=== PATIENT | male | born 1980 | race Caucasian/White ===

== ENCOUNTER 2020-05-15 11:39 | Emergency (ER) | payer OTHER, SELFPAY ==
[2020-05-15] VITALS (13 sets, daily range): BP systolic 154–205; BP diastolic 93–128; PULSE 70–86; RESP 12–22; TEMP 36; O2SAT 94–100
--- NOTE | ~2020-05-15 | XR_ITS ---
XR chest 1V portable 05/15/2020 12:22 Indication: Chest pain. Chills. Fever. Procedure: AP portable chest Comparison: No prior studies for comparison. Findings: Heart size is normal. No focal air space disease, pulmonary edema, pleural effusion or susp ected pneumothorax. No acute osseous abnormality. Impression: 1: No acute cardiopulmonary disease. Reviewed, dictated and finalized at location A. OPEDIC NURSE PRACTITIONER Impression: 1: No acute cardiopulmonary disease.
--- NOTE | 2020-05-15 11:49 | ECG_ITS ---
Measurements Intervals [place] Rate: 74 P: 9 ID: [id number] QRS: -33 QRSD: 131 T: -9 QT: 395 QTc: 439 Interpretive Statements SINUS RHYTHM LEFT AXIS DEVIATION RIGHT BUNDLE BRANCH BLOCK ABNORMAL ECG Electronically Signed On 05-15-2020 12:05:28 DOUBLE NEEDLE STITCHER by Danish Joy D.O.
[2020-05-15 12:02] LABS: Basophils Percent Auto 0.6 % (0.2-1.2); Eosinophils Absolute Auto 0.1 K/mm3 (0-0.3); Eosinophils Percent Auto 0.9 % (0-4.4); Hematocrit 49.3 % (42.0-52.0); Hemoglobin 16.9 g/dL (14.0-18.0); Immature Granulocyte Absolute 0.02 K/mm3 (0.00-0.031); Immature Granulocyte Percent A 0.3 % (0-0.5); Lymphocytes Absolute Auto 1.25 K/mm3 (0.9-3.2); Lymphocytes Percent Auto 18.2 % (18.3-44.2); Mean Corpuscular HGB Conc 34.3 g/dl (32-36); Mean Corpuscular Hemoglobin 31.2 pg (26-34); Mean Platelet Volume 9.4 fl (7.4-10.4); Monocytes Absolute Auto 0.7 K/mm3 (0.1-0.6); Monocytes Percent Auto 10.7 % (2.6-8.5); Neutrophils Absolute Auto 4.8 K/mm3 (1.3-6.7); Neutrophils Percent Auto 69.3 % (45.5-73.1); Platelet Count Result 248 k/mm3 (150-375); Red Blood Count 5.42 M/mm3 (4.6-6.20); Red Cell Distribution Width 11.5 % (11.5-14.5); White Blood Count 6.9 K/mm3 (4.5-10.0)
[2020-05-15] MEDS: ASPIRIN 81 MG CHEWABLE TABLET 324 MG PO (12:06)
[2020-05-15 12:18] LABS: Alanine Aminotransferase 59 U/L (4-50); Alkaline Phosphatase 71 U/L (38-126); Anion Gap 11 mmol/L (8-16); Aspartate Amino Transferase 49 U/L (17-59); Bilirubin,Total 0.9 mg/dL (0.2-1.3); Blood Urea Nitrogen 16 mg/dL (9-20); Calcium 10.5 mg/dL (8.4-10.2); Carbon Dioxide 28 mmol/L (22-30); Chloride 98 mmol/L (98-107); Estimated CRCL calculation 108 ml/min; Estimated Glomerular Filt Rate > 60; Glucose 109 mg/dL (75-110); Potassium 4.1 mmol/L (3.4-5.0); Sodium 137 mmol/L (137-145)
[2020-05-15 12:30] LABS: Troponin I < 0.012 ng/mL (0.000-0.034)
[2020-05-15 12:31] LABS: Troponin I < 0.012 ng/mL (0.000-0.034)
[2020-05-15 13:37] LABS: Add Urine Microscopic? NO; Appearance Urine Clear (Clear); Bilirubin Urine Negative (Negative); Blood Urine Negative (Negative); Color Urine Straw (Yellow); Glucose Urine UA Negative (Negative); Ketones Urine Negative (Negative); Leukocyte Esterase Ur Negative LEU/UL (Negative); Nitrate Urine Negative (Negative); Protein Urine Negative (Negative); Specific Grav Ur 1.011 (1.001-1.035); Urobilinogen Urine Negative mg/dL (<2.0)
--- NOTE | 2020-05-15 13:46 | PC.NURSE ---
Pt has requested covid swab. Pt reports has been afebrile, but has had chills, I'm fatigued, slight runny nose and cough . Explained to patient that his chest xray looked clear and that his pulse oximetry has been 99-100% on room air; pt states he still thinks he has covid. JACK Jones, made aware.
--- NOTE | 2020-05-15 13:51 | ED.GENADULT ---
HPI - General Adult General Chief complaint: Chest Pain Stated complaint: covid vaccine reaction Time Seen by Provider: 05/15/20 11:49 Source: patient Mode of arrival: ambulatory Limitations: no limitations History of Present Illness HPI narrative: Patient presents with chief complaint of occasional pain to the center of his sternum that resolves quickly without intervention that began 4 days ago. Patient states that he received his first Covid vaccination on 05-09-20. He states 2 days after he began having some fatigue, a little body aches, mild headache, then he noticed the intermittent transient sternum discomfort. He states it feels like a tightness that then resolves itself within a few seconds without intervention. He denies feeling palpitations, left sided chest pain, jaw pain, radiation of pain down left arm, vomiting, or epigastric pain at the times it occurs. He has been afebrile. He states he does not take any medications. Drinks coffee occasionally. Denies any new medications or supplements or recreational drugs. He states he reported his symptoms to his job which directed him to the ER for evaluation The last time the patient felt the pain was a few seconds at 8 am today. He does not have it upon presentation to the ER. Related Data Allergies Allergy/AdvReac Type Severity Reaction Status Date / Time No Known Allergies Allergy Verified 05/15/20 11:50 Review of Systems Review of Systems: Narrative: CONSTITUTIONAL:Reports fatigue Denies fever, chills, or sweats. EYES: Denies visual changes, redness, or discharge. ENT: Denies rhinorrhea, congestion, sore throat, or otalgia. CARDIOVASCULAR: Report transient sternum pain Denies chest pain, palpitations, or edema. RESPIRATORY: Denies cough or dyspnea. GASTROINTESTINAL: Denies abdominal pain, nausea, vomiting, or diarrhea. GENITOURINARY: Denies dysuria or hematuria. SKIN: Denies rash or itching. MUSCULOSKELETAL: Denies back pain, myalgia, or joint pain NEUROLOGIC: Denies headache, numbness, dizziness, or weakness. PSYCHIATRIC: Denies anxiety or depression. Exam Narrative: Exam Narrative: GENERAL: Well-appearing, well-nourished. Does not appear to be in any discomfort or distress. Smiling and talking normally. HEAD: Normocephalic, atraumatic. EYES: PERRLA and EOMI. NECK: Supple. No adenopathy or masses. No vertebral tenderness or loss of ROM. CHEST: No tenderness to palaption. Clear to auscultation. No respiratory distress. No wheezes rales or rhonchi HEART: Regular rate and rhythm. Normal peripheral pulses. EXTREMITIES: No acute changes in ROM. No edema. SKIN: Warm, dry, no rash. NEURO: No focal deficits. Alert and oriented x3. PSYCH: Normal mood and affect. Course Vital Signs Vital signs: Vital Signs Temperature 96.8 F L 05/15/20 11:47 Pulse Rate 74 05/15/20 11:47 Respiratory Rate 14 05/15/20 11:47 Blood Pressure 205/128 H 05/15/20 11:47 Pulse Oximetry 99 05/15/20 11:47 Temperature 96.8 F L 05/15/20 11:47 Pulse Rate 81 05/15/20 14:50 Respiratory Rate 20 05/15/20 14:50 Blood Pressure 157/104 H 05/15/20 14:32 Pulse Oximetry 98 05/15/20 14:17 Medical Decision Making MDM Narrative Medical decision making narrative: Patient has not had any active chest pain throughout his ER visit. Patient feels the pain is transiently and has over the past 4 days. Patient's troponin was negative. His EKG was insignificant. Patient does not have a close family history or personal history of prior NC or stroke. Patient has been instructed to follow-up with his primary care for reevaluation of blood pressure, and further investigation into his symptoms. I have discussed with the patient that he may need a Holter monitor, stress test or echo. Patient states that he has had these symptoms many years ago and they were due to stress and anxiety but I have stressed to the patient that it is important that he follow-up with his primary care to have the
== END 2020-05-15 14:54 | disposition home or self-care (01) ==
PROVIDERS: Physician Assistant; Emergency Provider Emergency Medicine; PCP Internal Medicine
DX: R07.9 Chest pain, unspecified (principal); T50.Z95A Adverse effect of other vaccines and biological substances, initial encounter
CPT/HCPCS: 36415; 71045; 80053; 81003; 84484; 85025; 93005; 99284; A9270

== ENCOUNTER 2021-03-15 17:02 | Inpatient (IN) | payer BC, SELFPAY ==
--- NOTE | ~2021-03-15 | US_ITS ---
EXAMINATION: US abdomen limited DATE: 03/16/2021 10:14 INDICATION: Pancreatitis. TECHNIQUE: Multiple grayscale and Doppler ultrasound images of the abdomen were obtained. COMPARISON: CT dated 03/15/2021 FINDINGS: There is heterogeneous echogenicity of the visualized body of the pancreas consistent with acute inte rstitial pancreatitis which is better appreciated on prior CT. No acute peripancreatic fluid collecti ons. Visualized proximal inferior vena cava is normal. Liver has normal echogenicity and contour, wit h a smooth surface. No liver lesion identified. No intrahepatic biliary duct dilation suspected. Port al venous flow was seen in the hepatopetal, normal direction and has normal Doppler waveform. The gal lbladder is normal in appearance. There is no cholelithiasis. The common bile duct measures 3 mm, wh ich is normal. Sonographic Moody sign was reported as negative by the station master. IMPRESSION: 1. Subtle heterogeneous echogenicity of the body of the pancreas consistent with previous noted acute interstitial pancreatitis without evident acute peripancreatic fluid collections. 2. Otherwise normal right upper quadrant ultrasound with no evident cholelithiasis. Reviewed, dictated and finalized at location A. IMPRESSION: 1. Subtle heterogeneous echogenicity of the body of the pancreas consistent wit h previous noted acute interstitial pancreatitis without evident acute peripanc reatic fluid collections. 2. Otherwise normal right upper quadrant ultrasound with no evident cholelithia sis.
--- NOTE | ~2021-03-15 | CT_ITS ---
EXAMINATION: CT abdomen pelvis w con DATE: 03/15/2021 19:33 INDICATION: Epigastric abdominal pain, lower abdominal pain. Elevated serum lipase. TECHNIQUE: Computed tomography (CT) of the abdomen and pelvis was performed with 100 cc Omnipaque 350 intravenous contrast. Automated exposure control and iterative reconstruction technique were employe d. Exam dose: 1181.97 mGy-cm total exam DLP. COMPARISON: None. FINDINGS: Minimal dependent atelectasis at the lower lobes. The lung bases are otherwise clear. Normal heart size. No pericardial or pleural effusion. Small sliding hiatal hernia. The liver, gallbladder and bile ducts are unremarkable. Normal splenic size. There is prominent peripancreatic fluid as well as some fluid along the left and right anterior parar enal fascia and surrounding the duodenum, compatible with acute pancreatitis. No pancreatic necrosis or calcification, pseudocyst or abscess is evident. Normal morphology of the adrenal glands. Horseshoe kidney. No renal mass lesion or urinary tract calculus or hydroureteronephrosis. The urinar y bladder and prostate gland are unremarkable. No bowel obstruction, bowel wall thickening, pneumatosis or intraperitoneal free air. Normal appendix . Normal caliber of the abdominal aorta. No intraperitoneal or retroperitoneal or pelvic mass lesion or adenopathy or ascites. Degenerative disc disease particularly at L2-3 and L3-4. IMPRESSION: Acute pancreatitis Horseshoe kidney Small sliding hiatal hernia Reviewed, dictated and finalized at Location A. Reviewed, dictated and finalized at location A.
--- NOTE | ~2021-03-15 | XR_ITS ---
XR chest 2V DATE: 03/15/2021 17:33 INDICATION: Midsternal chest pain, nausea and vomiting, weakness for 3 days TECHNIQUE: PA and lateral views COMPARISON: 05/15/2020 portable AP chest FINDINGS: Normal heart size. No hilar or mediastinal enlargement. No pulmonary infiltrate or consolid ation, pleural effusion or pulmonary vascular congestion or pneumothorax. Included skeletal structure s appear normal. IMPRESSION: Negative Reviewed, dictated and finalized at location A. IMPRESSION: Negative
--- NOTE | 2021-03-15 17:03 | ECG_ITS ---
Measurements Intervals [place] Rate: 102 P: 31 NC: 152 QRS: -47 QRSD: 129 T: 21 QT: 362 QTc: 474 Interpretive Statements SINUS TACHYCARDIA RIGHT BUNDLE BRANCH BLOCK LEFT ANTERIOR FASCICULAR BLOCK ABNORMAL ECG Electronically Signed On 03-16-2021 16:21:39 CDT by Danish Joy D.O.
[2021-03-15 17:05] VITALS: BP 152/94; PULSE 96; RESP 16; TEMP 36.6; O2SAT 99
[2021-03-15 17:28] LABS: Basophils Percent Auto 0.3 % (0.2-1.2); Eosinophils Absolute Auto 0.2 K/mm3 (0-0.3); Eosinophils Percent Auto 1.1 % (0-4.4); Hematocrit 49.1 % (42.0-52.0); Hemoglobin 16.7 g/dL (14.0-18.0); Immature Granulocyte Absolute 0.04 K/mm3 (0.00-0.031); Immature Granulocyte Percent A 0.3 % (0-0.5); Lymphocytes Absolute Auto 2.27 K/mm3 (0.9-3.2); Lymphocytes Percent Auto 15.9 % (18.3-44.2); Mean Corpuscular Hemoglobin 31.7 pg (26-34); Mean Corpuscular Volume 93.2 fl (80-100); Mean Platelet Volume 9.3 fl (7.4-10.4); Monocytes Absolute Auto 1.6 K/mm3 (0.1-0.6); Monocytes Percent Auto 11.2 % (2.6-8.5); Neutrophils Absolute Auto 10.1 K/mm3 (1.3-6.7); Neutrophils Percent Auto 71.2 % (45.5-73.1); Platelet Count Result 247 k/mm3 (150-375); Red Blood Count 5.27 M/mm3 (4.6-6.20); Red Cell Distribution Width 12.2 % (11.5-14.5); White Blood Count 14.2 K/mm3 (4.5-10.0)
[2021-03-15 17:38] LABS: INR 0.9; Prothrombin Time 12.3 Seconds (11.1-14.7)
[2021-03-15 17:39] LABS: Partial Thromboplastin Time 22.6 SECONDS (22.3-36.8)
[2021-03-15 17:42] LABS: Anion Gap 12 mmol/L (8-16); Blood Urea Nitrogen 13 mg/dL (9-20); Calcium 10.7 mg/dL (8.4-10.2); Carbon Dioxide 26 mmol/L (22-30); Chloride 100 mmol/L (98-107); Estimated Glomerular Filt Rate > 60; Glucose 136 mg/dL (65-110); Potassium 4.1 mmol/L (3.4-5.0); Sodium 138 mmol/L (137-145)
--- NOTE | 2021-03-15 17:47 | ED.GENADULT ---
HPI - General Adult General Chief complaint: Chest Pain Stated complaint: Chest pain Time Seen by Provider: 03/15/21 17:20 Source: patient and RN notes reviewed Mode of arrival: ambulatory Limitations: no limitations History of Present Illness HPI narrative: This is a 40 year old male with history of hypertension, hyperlipidemia who presents for evaluation of abdominal pain. He has been dealing with diffuse abdominal discomfort for 3 days. He has constant discomfort and it intermittently worsens. Today he developed sudden onset epigastric pain. He became flushed, diaphoretic with associated nausea with nonbilious emesis x 1 . He continues to have epigastric pain and nausea. He denies shortness of breath, fever, chills or urinary complaints. He denies radiation of his pain to his back. He was able to eat breakfast this morning and he states eating did not worsen his pain. He also denies having similar pain in the past. Related Data Home Medications Medication Instructions Recorded Confirmed atorvastatin 20 mg PO DAILY 03/15/21 03/15/21 fluoxetine 20 mg PO DAILY 03/15/21 03/15/21 lisinopril 10 mg PO DAILY 03/15/21 03/15/21 Allergies Allergy/AdvReac Type Severity Reaction Status Date / Time No Known Allergies Allergy Verified 03/15/21 17:08 Review of Systems Review of Systems: All systems reviewed & are unremarkable except as noted in HPI and below PMFSH Past Medical History Medical History (Updated 03/15/21 @ 23:43 by Luann East MD) Anxiety Hyperlipidemia Hypertension Surgical History Surgical History (Updated 03/15/21 @ 23:35 by Mari Harrell DO) History of bilateral inguinal hernia repair (~2010) S/P left rotator cuff repair S/P right rotator cuff repair Family History Family History Mother Hypertension Diabetes mellitus Father Hypertension Social History Social History Smoking status: Never smoker Alcohol intake: current Drinks per week: 35 Alcohol use details: drinks daily Spiritual care concerns: No Exam Const: General: alert Orientation/consciousness: patient oriented x3 HENMT: Head: normocephalic and atraumatic General nose exam: Normal external nose present Face and sinus: face symmetric Mouth: Yes Normal oral and palatal mucosa present, Yes oropharynx normal, Yes moist mucous membranes and Yes other (pale lips) Eyes: Pupils: Equal, round and reactive pupils present EOM: EOMs intact bilaterally Chest: Chest palpation & inspection: normal inspection of the chest Resp: Effort & Inspection: normal respiratory effort and no retractions Auscultation: clear to auscultation bilaterally Cardio: Rate: regular rate Rhythm: regular rhythm Heart sounds: no murmurs GI: GI Palp: Yes Soft to palpation, No Tenderness to palpation present (GI) and No Guarding due to palpation present (GI) Auscultation: normal bowel sounds Back/Spine/Pelvis: Back: no CVA tenderness Skin: General skin exam: normal color Rashes: no rashes Neuro: General: patient oriented x3, moves all extremities and CN's II-XI intact bilaterally Extrem: General: normal to inspection and no pedal edema Psych: Mental Status: mental status grossly normal Affect: normal affect Course Reevaluation(s) Reevaluation #1: Patient understands he will be admitted for acute pancreatitis. This is likely due to alcohol use. Patient understands . Date: 03/15/21 Time: 21:00 Consultations Consultation #1: I discussed with Dr. harrell patient case. She accepts patient to service for acute pancreatitis. Will order 2 IV fluid Date: 03/15/21 Time: 19:50 Vital Signs Vital signs: Vital Signs Temperature 97.8 F 03/15/21 17:05 Pulse Rate 96 03/15/21 17:05 Respiratory Rate 16 03/15/21 17:05 Blood Pressure 152/94 H 03/15/21 17:05 Pulse Oximetry 99 03/15/21 17:05 Temperatu
[2021-03-15 17:53] LABS: Troponin I < 0.012 ng/mL (0.000-0.034)
[2021-03-15] MEDS: PANTOPRAZOLE SODIUM IV 40 MG VIAL IV PUSH (17:54)
[2021-03-15] MEDS: ONDANSETRON INJ 4 MG/2 ML VIAL IV PUSH (17:54)
[2021-03-15 18:01] LABS: Alanine Aminotransferase 39 U/L (4-50); Albumin Level 5.1 g/dL (3.5-5.1); Alkaline Phosphatase 77 U/L (38-126); Aspartate Amino Transferase 39 U/L (17-59); Bilirubin,Total 0.7 mg/dL (0.2-1.3)
[2021-03-15 18:36] LABS: Lipase 14690 U/L (23-300)
[2021-03-15 18:48] VITALS: BP 156/93; PULSE 79; RESP 12; O2SAT 99
[2021-03-15] MEDS: HYDROmorphone HCL INJ (*CRX) 1 MG/ML SYR IV PUSH (18:54)
[2021-03-15] MEDS: ONDANSETRON INJ 4 MG/2 ML VIAL (19:03)
--- NOTE | 2021-03-15 19:09 | PC.NURSE ---
Pt. vomiting after dilaudid administration. ERP notified. ERP ordered 4mg of zofran IVP via verbal order readback.
[2021-03-15] MEDS: SODIUM CHLORIDE 0.9% IV 1,000 ML 999 ML IV CONT ×2 (20:09)
--- NOTE | 2021-03-15 20:23 | PM.IMHP ---
H&P: HPI History of Present Illness Date/Time: 03/15/21 20:23 Chief Complaint: Upper abdominal pain Narrative: 40-year-old male with past medical history of hypertension, hyperlipidemia, anxiety and chronic alcohol abuse who presented to the ER with epigastric abdominal pain. The patient reported pain started about 3 days ago and was pressure-like in nature. The pain started about an hour after eating a breakfast of an exam which. He has not noticed any worsening of pain with eating or drinking. The pain is been intermittent in nature but has been more persistent over the last 24 hours. The pain is a 7/10 in intensity at its worst in 5/10 in intensity currently. He has not taken any medications at home to help with this pain. Is been accompanied by intermittent nausea and 2 episodes of vomiting 1 time each day for the last 2 days. His emesis consisted of food and yellow material. He denies any coffee-ground emesis or mad emesis. He has been having normally formed bowel movements with last bowel movement this afternoon. He denies any hematochezia or melena. He has never had abdominal pain like this before. His pain does not radiate. He does drink quite heavily and drinks 5-6 alcoholic beverages a day with 1.5 shots of vodka in each drink. He does get shaky at times if he does not drink alcohol. His last drink was around 10:00 p.m. on the . He denies any fevers, chills, cough, congestion, shortness of breath or recent ill contacts. He is vaccinated against COVID-19 with Moderna vaccine back in June 2020. His labs and CT scan are consistent with acute pancreatitis. He denies any prior history of pancreatitis and denies familial pancreatitis. He does snore. He denies any episodes of apnea. He denies excessive daytime sleepiness. Review of Systems Review of Systems: 12 systems were reviewed with pertinent positives and negatives per HPI. Except as documented in the HPI, all other systems were reviewed and are negative. [facility] Past Medical History Medical History (Updated 03/15/21 @ 23:50 by Mari Yoder DO) Anxiety Hyperlipidemia Hypertension Surgical History Surgical History (Updated 03/15/21 @ 23:35 by Mari Yoder DO) History of bilateral inguinal hernia repair (~2010) S/P left rotator cuff repair S/P right rotator cuff repair Family History Family History Mother Hypertension Diabetes mellitus Father Hypertension Social History Social History (Updated 03/15/21 @ 23:45 by Mari Yoder DO) Social History: He is for 11 years. They have 5 children. 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 He drinks 5-6 vodka containing beverages a night containing about 9 shot of alcohol total. He is a lifelong nonsmoker and denies illicit substance use. Code status: Full code Surrogate decision maker: Smoking status: Never smoker Alcohol intake: current Drinks per week: 35 Alcohol use details: drinks daily Substance use: never Spiritual care concerns: No Comments He has 1 sister who is healthy. Meds Home Medications and Allergies Home Medications Medication Instructions Recorded Confirmed Type atorvastatin 20 mg PO DAILY 03/15/21 03/15/21 History fluoxetine 20 mg PO DAILY 03/15/21 03/15/21 History lisinopril 10 mg PO DAILY 03/15/21 03/15/21 History Allergies Allergy/AdvReac Type Severity Reaction Status Date / Time No Known Allergies Allergy Verified 03/15/21 17:08 Vital Signs Vital Signs - 24 hr 03/15/21 17:05 03/15/21 18:48 Temperature 97.8 F Pulse Rate 96 79 Respiratory Rate 16 12 Blood Pressure 152/94 H 156/93 H Pulse Oximetry 99 99 Exam Narrative: PHYSICAL EXAM: WEIGHT 116.1 kg BMI 32.9 General: Obese, mildly ill-appearing HEENT: Mucous membranes are tacky, no oral pharyngeal erythema, crowded posterior oropharynx, large neck circumference, no scleral icterus,
[2021-03-15] MEDS: PROMETHAZINE HCL 25 MG/ML AMPUL 12.5 MG IV PUSH (20:31)
[2021-03-15 21:56] VITALS: BP 152/89; PULSE 91; RESP 18; O2SAT 100
[2021-03-15 22:00] VITALS: BP 153/85; PULSE 75; RESP 18; TEMP 35.8; O2SAT 100
[2021-03-15 22:17] VITALS: BMI 32.8
--- NOTE | 2021-03-15 22:17 | ADMGEN ---
This patient, Santosh Alston, was admitted to [facility] S[facility] Room 310-01. Patient/family oriented to hospital policies and general routines including ID bracelet, bed and alarms, visiting hours, pain management, procedures, bathroom and other care routines, personal items, smoking policy, room service/diet, and visiting hours. Information on how to activate the Rapid Response Team has been discussed. Patient/Family are encouraged to report perceived risks to care and to ask questions if they do not understand what they are told or what they should do.
[2021-03-15 22:19] VITALS: BMI 32.8
[2021-03-15] MEDS: HYDROmorphone HCL INJ (*CRX) 1 MG/ML SYR 0.5 MG IV PUSH (23:05)
[2021-03-15] MEDS: SODIUM CHLORIDE 0.9% IV 1,000 ML 200 ML IV CONT (23:15)
[2021-03-16] VITALS (10 sets, daily range): BP systolic 150–182; BP diastolic 91–108; PULSE 78–92; RESP 12–18; TEMP 35.8–36.4; O2SAT 94–97
[2021-03-16] MEDS: ONDANSETRON INJ 4 MG/2 ML VIAL IV PUSH ×5 (01:12→21:50)
[2021-03-16] MEDS: SODIUM CHLORIDE 0.9% IV 1,000 ML 200 ML IV CONT ×2 (05:01→10:13)
[2021-03-16] MEDS: HYDROmorphone HCL INJ (*CRX) 1 MG/ML SYR 0.5 MG IV PUSH ×4 (05:04→21:50)
[2021-03-16 06:56] LABS: Basophils Percent Auto 0.1 % (0.2-1.2); Hematocrit 48.3 % (42.0-52.0); Hemoglobin 16.2 g/dL (14.0-18.0); Immature Granulocyte Absolute 0.06 K/mm3 (0.00-0.031); Immature Granulocyte Percent A 0.4 % (0-0.5); Lymphocytes Absolute Auto 0.39 K/mm3 (0.9-3.2); Lymphocytes Percent Auto 2.5 % (18.3-44.2); Mean Corpuscular HGB Conc 33.5 g/dl (32-36); Mean Corpuscular Hemoglobin 31.5 pg (26-34); Mean Platelet Volume 9.7 fl (7.4-10.4); Monocytes Absolute Auto 1.3 K/mm3 (0.1-0.6); Monocytes Percent Auto 8.6 % (2.6-8.5); Neutrophils Absolute Auto 13.8 K/mm3 (1.3-6.7); Neutrophils Percent Auto 88.4 % (45.5-73.1); Platelet Count Result 211 k/mm3 (150-375); Red Blood Count 5.14 M/mm3 (4.6-6.20); Red Cell Distribution Width 12.2 % (11.5-14.5); White Blood Count 15.6 K/mm3 (4.5-10.0)
[2021-03-16 07:12] LABS: Alanine Aminotransferase 31 U/L (4-50); Albumin Level 4.7 g/dL (3.5-5.1); Alkaline Phosphatase 69 U/L (38-126); Anion Gap 8 mmol/L (8-16); Aspartate Amino Transferase 31 U/L (17-59); Bilirubin,Total 0.8 mg/dL (0.2-1.3); Blood Urea Nitrogen 13 mg/dL (9-20); Calcium 9.5 mg/dL (8.4-10.2); Carbon Dioxide 27 mmol/L (22-30); Chloride 102 mmol/L (98-107); Estimated CRCL calculation 162 ml/min; Estimated Glomerular Filt Rate > 60; Glucose 156 mg/dL (65-110); Magnesium 1.8 mg/dL (1.6-2.3); Phosphorus 3.8 mg/dL (2.5-4.5); Potassium 4.2 mmol/L (3.4-5.0); Sodium 137 mmol/L (137-145); Triglycerides 64 mg/dL (<150)
[2021-03-16 08:49] LABS: Hemoglobin A1C 5.5 % (<5.7)
[2021-03-16 08:55] LABS: Lipase 5209 U/L (23-300)
[2021-03-16] MEDS: PANTOPRAZOLE SODIUM IV 40 MG VIAL IV PUSH (09:31)
[2021-03-16] MEDS: ENOXAPARIN 40 MG/0.4 ML SYRINGE SUB-Q (09:32)
[2021-03-16] MEDS: THIAMINE HCL 200 MG/2 ML VIAL 100 MG IV PUSH (09:32)
[2021-03-16 09:41] LABS: Folic Acid 8.5 ng/mL (2.76->20)
--- NOTE | 2021-03-16 12:57 | PM.IMPN ---
Progress Note: A&P Assessment and Plan (1) Acute pancreatitis: Qualifiers: Acute pancreatitis complication: no infection or necrosis Pancreatitis type: alcohol induced Qualified Code(s): K85.20 - Alcohol induced acute pancreatitis without necrosis or infection Code(s): K85.90 - Acute pancreatitis without necrosis or infection, unspecified Status: Acute Assessment and Plan: Acute pancreatitis most likely due to heavy alcohol use -right upper quadrant ultrasound shows no gallbladder pathology or evidence of cholelithiasis. No new supplements or medications -since he continues to have nausea and vomiting, will continue NPO status but will try ice chips later today -lipase trending down -patient understands that he needs to quit drinking alcohol (2) Alcohol abuse: Code(s): F10.10 - Alcohol abuse, uncomplicated Status: Acute Assessment and Plan: no signs and symptoms of alcohol withdrawal per patient or on exam -Patient does report symptoms of shaking when abstaining from alcohol. -Extensive discussion was had with the patient about the importance of abstaining from alcohol specially in the setting of episodes of pancreatitis. -continue thiamine. add Folic acid if it is in stock -monitor (3) Hypertension: Code(s): I10 - Essential (primary) hypertension Status: Inactive Assessment and Plan: Last blood pressure 166/97 -home lisinopril on hold due to NPO status -will do p.r.n. hydralazine Time Spent With Patient Time with patient: 25 - 35 minutes Subjective Date/time seen: 03/16/21 12:57 Interval history: Pt is a 40-year-old male here for pancreatitis. Patient was seen today with family at bedside and states he is improving but still a lot of pain. He states his epigastric pain is a 5/10. He has vomited once today but has continued to be nauseous. His throat is sore from throwing up so much. He denies throwing up any blood, dark substance, or dark stool. He denies chest pain or shortness of breath. He has had no new supplements, vaccines, or medications. No signs and symptoms of alcohol withdrawal such as hallucinations or tremors. Review of Systems Review of Systems: All systems reviewed & are unremarkable except as noted in HPI and below Exam Narrative: General: Well developed well nourished patient in NAD HEENT: normocephalic Neck: supple Neuro: Alert and oriented x4 CV:RRR Resp:CTA, hesitant to take deep breath sounds due to abdominal pain Abd: Soft, non distended. Pain to palpation to the epigastric area. Positive bowel sounds. No flank or umbilicus ecchymosis Extremities: No swelling, erythema, or pain to palpation. Objective Data Vital Signs Vital Signs: Vital Signs - 24 hr 03/15/21 17:05 03/15/21 18:48 03/15/21 21:56 Temperature 97.8 F Pulse Rate 96 79 91 Pulse Rate [Left Radial Palpation] Respiratory Rate 16 12 18 Blood Pressure 152/94 H 156/93 H 152/89 H Pulse Oximetry 99 99 100 03/15/21 22:00 03/16/21 00:00 03/16/21 04:00 Temperature 96.5 F L Pulse Rate 75 Pulse Rate [Left Radial Palpation] 80 88 Respiratory Rate 18 Blood Pressure 153/85 H Pulse Oximetry 100 03/16/21 06:00 03/16/21 09:31 03/16/21 09:32 Temperature 96.5 F L Pulse Rate 84 Pulse Rate [Left Radial Palpation] 88 Respiratory Rate 18 Blood Pressure 166/97 H Pulse Oximetry 97 96 Intake/Output Intake/Output: Intake & Output 03/13/21 03/14/21 03/15/21 03/16/21 23:59 23:59 23:59 23:59 Intake Total 2099 1999 Balance 2099 1999 Meds/Results Medications: Active Medications Generic Name Dose Route Start Last Admin Trade Name Freq PRN Reason Stop Dose Admin Enoxaparin Sodium 40 mg 03/16/21 09:00 03/16/21 09:32 Enoxaparin 40 Mg/0.4 Ml Syringe SUB-Q 40 mg DAILY [place] Administration Hydromorphone HCl 0.5 mg 03/15/21 20:47 03/16/21 09:31 Hydromorphone Hcl Inj (*Crx) 1 Mg/Ml Sy
[2021-03-16] MEDS: SODIUM CHLORIDE 0.9% IV 1,000 ML 125 ML IV CONT ×2 (13:32→16:16)
[2021-03-16] MEDS: hydrALAZINE HCL 20 MG/ML VIAL 10 MG IV PUSH (14:50)
[2021-03-16] MEDS: FOLIC ACID 1 MG/0.2 ML INJ IV PUSH (14:51)
[2021-03-16] MEDS: PHENOL/SOD PHENO SPRAY CHERRY (*BKC) 1 SPRAY MUCOUS MEM (15:02)
[2021-03-16] MEDS: LORazepam INJ (*CRX) 2 MG/ML VIAL 0.5 MG IV PUSH ×2 (16:08→21:47)
[2021-03-17] VITALS (10 sets, daily range): BP systolic 150–178; BP diastolic 80–110; PULSE 80–105; RESP 18; TEMP 36.3–36.6; O2SAT 95–97
[2021-03-17] MEDS: SODIUM CHLORIDE 0.9% IV 1,000 ML 125 ML IV CONT ×2 (00:03→07:53)
--- NOTE | 2021-03-17 01:59 | PC.NURSE ---
Daylight Savings Time For Daylight Savings Time Ending in the Fall - Clocks are moved back. For Daylight Savings Time Beginning in the Spring - Clocks are moved ahead. For [facility], the time of change occurs at 0200 hrs. Time is taken from the seismic prospecting observer. This entry on the patient's chart recognizes the change in time reflected during documentation. Example: 2 entries for vital signs may be charted for 0200 hrs.
[2021-03-17] MEDS: hydrALAZINE HCL 20 MG/ML VIAL 10 MG IV PUSH (05:29)
[2021-03-17 07:17] LABS: Basophils Percent Auto 0.1 % (0.2-1.2); Hematocrit 44.2 % (42.0-52.0); Hemoglobin 14.5 g/dL (14.0-18.0); Immature Granulocyte Absolute 0.09 K/mm3 (0.00-0.031); Immature Granulocyte Percent A 0.5 % (0-0.5); Lymphocytes Absolute Auto 0.61 K/mm3 (0.9-3.2); Lymphocytes Percent Auto 3.7 % (18.3-44.2); Mean Corpuscular HGB Conc 32.8 g/dl (32-36); Mean Corpuscular Hemoglobin 31.7 pg (26-34); Mean Corpuscular Volume 96.5 fl (80-100); Mean Platelet Volume 10.1 fl (7.4-10.4); Monocytes Absolute Auto 1.6 K/mm3 (0.1-0.6); Monocytes Percent Auto 9.8 % (2.6-8.5); Neutrophils Absolute Auto 14.3 K/mm3 (1.3-6.7); Neutrophils Percent Auto 85.9 % (45.5-73.1); Platelet Count Result 180 k/mm3 (150-375); Red Blood Count 4.58 M/mm3 (4.6-6.20); Red Cell Distribution Width 12.7 % (11.5-14.5); White Blood Count 16.7 K/mm3 (4.5-10.0)
[2021-03-17 07:26] LABS: Anion Gap 9 mmol/L (8-16); Blood Urea Nitrogen 15 mg/dL (9-20); Calcium 9.2 mg/dL (8.4-10.2); Carbon Dioxide 24 mmol/L (22-30); Chloride 102 mmol/L (98-107); Estimated CRCL calculation 162 ml/min; Estimated Glomerular Filt Rate > 60; Glucose 96 mg/dL (65-110); Potassium 3.9 mmol/L (3.4-5.0); Sodium 135 mmol/L (137-145)
--- NOTE | 2021-03-17 07:35 | PM.IMPN ---
Progress Note: A&P Assessment and Plan (1) Acute pancreatitis: Qualifiers: Acute pancreatitis complication: no infection or necrosis Pancreatitis type: alcohol induced Qualified Code(s): K85.20 - Alcohol induced acute pancreatitis without necrosis or infection Code(s): K85.90 - Acute pancreatitis without necrosis or infection, unspecified Status: Acute Assessment and Plan: Acute pancreatitis most likely due to heavy alcohol use -right upper quadrant ultrasound shows no gallbladder pathology or evidence of cholelithiasis. No new supplements or medications -due to his symptoms improving, will start clear liquids today. Will stop fluids once he tolerates a diet today. -lipase still pending for today -patient understands that he needs to quit drinking alcohol (2) Alcohol abuse: Code(s): F10.10 - Alcohol abuse, uncomplicated Status: Acute Assessment and Plan: no signs and symptoms of alcohol withdrawal on exam today -Patient does report having tremors and anxiety yesterday but no hallucinations -Extensive discussion was had with the patient about the importance of abstaining from alcohol specially in the setting of episodes of pancreatitis. -CIWA 2, if this worsens may consider librium -continue thiamine, folic acid and Ativan for CIWA >8 -monitor (3) Hypertension: Code(s): I10 - Essential (primary) hypertension Status: Inactive Assessment and Plan: Last blood pressure 158/80 but was much higher overnight and required hydralizine -likely due to pain and alcohol withdraw on top of chronic HTN -will restart lisinopril Subjective Date/time seen: 03/17/21 07:35 Interval history: Pt is a 40-year-old male here for pancreatitis. Patient was seen today and states he is doing much better than yesterday. He still has epigastric pain which is milder. He has not had any nausea or vomiting. He denies chest pain, diarrhea or constipation. He has been having some tremors and some anxiety from alcohol withdrawal but no hallucinations. He says the Ativan does help. Exam Narrative: General: Well developed well nourished patient in NAD HEENT: normocephalic Neck: supple Neuro: Alert and oriented x4. No tremor noted on exam CV:RRR Resp:CTA Abd: Soft, non distended. Pain to palpation to the epigastric area. Positive bowel sounds. No flank or umbilicus ecchymosis Extremities: No swelling, erythema, or pain to palpation. Objective Data Vital Signs Vital Signs: Vital Signs - 24 hr 03/16/21 09:31 03/16/21 09:32 03/16/21 12:00 Temperature Pulse Rate Pulse Rate [Left Radial Palpation] 88 82 Respiratory Rate Blood Pressure Pulse Oximetry 96 03/16/21 14:00 03/16/21 16:35 03/16/21 21:53 Temperature 97.6 F 97.4 F L Pulse Rate 92 78 Pulse Rate [Left Radial Palpation] 86 Respiratory Rate 16 12 Blood Pressure 182/108 H 150/91 H Pulse Oximetry 94 97 03/16/21 22:08 03/17/21 00:00 03/17/21 04:00 Temperature Pulse Rate 78 Pulse Rate [Left Radial Palpation] 86 86 Respiratory Rate 12 Blood Pressure 150/91 H 150/91 H 178/110 H Pulse Oximetry 97 03/17/21 05:40 03/17/21 06:33 Temperature 97.5 F L Pulse Rate 102 H Pulse Rate [Left Radial Palpation] Respiratory Rate 18 Blood Pressure 178/110 H 158/80 H Pulse Oximetry 97 Intake/Output Intake/Output: Intake & Output 03/14/21 03/15/21 03/16/21 03/17/21 23:59 23:59 23:59 22:59 Intake Total 2100 4180 1000 Balance 2100 4180 1000 Meds/Results Medications: Active Medications Generic Name Dose Route Start Last Admin Trade Name Freq PRN Reason Stop Dose Admin Enoxaparin Sodium 40 mg 03/16/21 09:00 03/16/21 09:32 Enoxaparin 40 Mg/0.4 Ml Syringe SUB-Q 40 mg DAILY [facility] Administration Folic Acid 1 mg 03/17/21 09:00 Folic Acid 1 Mg/0.2 Ml Inj IV PUSH QAM [facility] Hydralazine HCl 10 mg 03/16/21 13:04 03/17/21 05:29 Hydr
[2021-03-17 08:02] LABS: Lipase 2390 U/L (23-300)
[2021-03-17] MEDS: lisinopriL 10 MG TABLET PO (11:00)
[2021-03-17] MEDS: THIAMINE HCL 200 MG/2 ML VIAL 100 MG IV PUSH (11:00)
[2021-03-17] MEDS: ENOXAPARIN 40 MG/0.4 ML SYRINGE SUB-Q (11:00)
[2021-03-17] MEDS: FOLIC ACID 1 MG/0.2 ML INJ IV PUSH (11:00)
[2021-03-17] MEDS: PANTOPRAZOLE SODIUM IV 40 MG VIAL IV PUSH (11:01)
[2021-03-18] MEDS: ONDANSETRON INJ 4 MG/2 ML VIAL IV PUSH ×2 (02:37→10:51)
--- NOTE | 2021-03-18 02:43 | PC.NURSE ---
Patient walked to the nurses station reported emesis x2 stating he ate too much at dinner. Patient was given PRN ordered Zofran. Will continue to monitor.
[2021-03-18 04:00] VITALS: BP 160/95; PULSE 80
[2021-03-18 06:00] VITALS: BP 141/83; PULSE 82; RESP 18; TEMP 36.9; O2SAT 98
[2021-03-18 06:53] LABS: Hematocrit 41.5 % (42.0-52.0); Hemoglobin 13.6 g/dL (14.0-18.0); Mean Corpuscular HGB Conc 32.8 g/dl (32-36); Mean Corpuscular Hemoglobin 31.1 pg (26-34); Mean Platelet Volume 9.8 fl (7.4-10.4); Platelet Count Result 176 k/mm3 (150-375); Red Blood Count 4.37 M/mm3 (4.6-6.20); Red Cell Distribution Width 12.4 % (11.5-14.5); White Blood Count 14.7 K/mm3 (4.5-10.0)
[2021-03-18 07:05] LABS: Anion Gap 9 mmol/L (8-16); Blood Urea Nitrogen 11 mg/dL (9-20); Calcium 9.4 mg/dL (8.4-10.2); Carbon Dioxide 28 mmol/L (22-30); Chloride 96 mmol/L (98-107); Estimated CRCL calculation 143 ml/min; Estimated Glomerular Filt Rate > 60; Glucose 108 mg/dL (65-110); Lipase 842 U/L (23-300); Potassium 3.5 mmol/L (3.4-5.0); Sodium 133 mmol/L (137-145)
[2021-03-18] MEDS: ENOXAPARIN 40 MG/0.4 ML SYRINGE SUB-Q (09:40)
[2021-03-18] MEDS: lisinopriL 10 MG TABLET PO (09:40)
[2021-03-18] MEDS: THIAMINE HCL 200 MG/2 ML VIAL 100 MG IV PUSH (09:41)
[2021-03-18] MEDS: PANTOPRAZOLE SODIUM IV 40 MG VIAL IV PUSH (09:41)
[2021-03-18] MEDS: FOLIC ACID 1 MG/0.2 ML INJ IV PUSH (09:45)
--- NOTE | 2021-03-18 10:17 | PM.DS ---
DS: Admitting Diagnosis Discharge Date 03/18/21 Admitting Diagnosis pancreatitis DS: Discharge Diagnosis Discharge Diagnosis (1) Acute pancreatitis: Qualifiers: Acute pancreatitis complication: no infection or necrosis Pancreatitis type: alcohol induced Qualified Code(s): K85.20 - Alcohol induced acute pancreatitis without necrosis or infection Code(s): K85.90 - Acute pancreatitis without necrosis or infection, unspecified Status: Acute Assessment and Plan: Acute pancreatitis most likely due to heavy alcohol use -right upper quadrant ultrasound shows no gallbladder pathology or evidence of cholelithiasis. No new supplements or medications -lipase trending down at discharge 842, down from 14,690 on admission -tolerating a low fat diet, pain is minimal -patient understands that he needs to quit drinking alcohol -leukocytosis trending down and likely due to acute illness, no infx suspected and suspect this will resolved with the pancreatitis. (2) Alcohol abuse: Code(s): F10.10 - Alcohol abuse, uncomplicated Status: Acute Assessment and Plan: no signs and symptoms of alcohol withdrawal on exam today -Patient does report having tremors and anxiety a few days prior but no hallucinations -Extensive discussion was had with the patient about the importance of abstaining from alcohol specially in the setting of episodes of pancreatitis. -CIWA 0, -continue thiamine and folic acid -educated on the signs and symptoms to come back to the ER for (3) Hypertension: Code(s): I10 - Essential (primary) hypertension Status: Inactive Assessment and Plan: Last blood pressure 164/92 with resolution of pain. -increased home lisinopril from 10 to 20. pt needs to follow up with pcp to see if he needs further adjustment DS: Summary Hospital Course Hospital Course: Date of service 03/18/2021 Patient is a 40-year-old male with a history of alcohol abuse who presented emergency room on 03/15/2021 for diffuse epigastric pain found to have pancreatitis. Temperature in the ER was 97.8, pulse 96, respiratory rate 16, blood pressure 152/94, pulse ox 99 on room air. Initial white blood cell count 14.2, hemoglobin 16.7, hematocrit 49.1, platelets 247. BMP normal with exception of random glucose 136. Lipase 14,690. Chest x-ray negative. CT of the abdomen pelvis shows acute pancreatitis. Patient was admitted to hospitalist service and started on IV fluids. He did have some high blood pressures throughout his stay which was likely worse due to pain but his lisinopril at discharge was increased. As for his pain, it gradually improved and he was able to advance his diet to a low-fat diet. Ultrasound of the right upper quadrant was done which did not show any concern for cholelithiasis. He has no new medications or supplements. Patient drinks about 9 shots of vodka a day in various drinks and is likely the cause of pancreatitis. He plans to quit drinking. Throughout his stay at a little bit of anxiety and required Ativan a couple times but had no signs so withdraw the last 2 days of his hospital stay. Leukocytosis likely due to acute pancreatitis. At this time no evidence of bacterial infection. It is trending down I suspect this will improve over time as well the lipase. Day of discharge the patient was feeling much better with minimal pain and he was tolerating a diet. He had a big breakfast and felt great. Patient was educated about the worrisome signs and symptoms come back to emergency room for and was discharged stable condition. Time Spent with Patient Time attestation: Total time spent providing and/or coordinating discharge services:40 min Exam Narrative: General: Well developed well nourished patient in NAD HEENT: normocephalic Neck: supple Neuro: Alert and oriented x4. No tremor noted on exam CV:RRR Resp:CTA Abd: Soft, non distended. slight pain to palpation
[2021-03-18 14:00] VITALS: BP 164/92; PULSE 91; RESP 20; TEMP 36.3; O2SAT 96
--- NOTE | 2021-04-07 11:05 | PC.NURSE ---
Patient called stating increased abdominal pain with nausea and vomiting that has been recurrent recently and increasing as well as increased weakness and lethargy. Per discharge instructions from recent hospital stay, patient advised to seek medical attention at the nearest ER. Patient agrees and will seek treatment.
== END 2021-03-18 15:24 | disposition home or self-care (01) | DRG 440 ==
LOC: ANHED 17:47 → ANH3MEDSUR 23:42
PROVIDERS: Emergency Medicine; Admitting Provider Internal Medicine; Emergency Provider General Practice; PCP Internal Medicine; Visit Provider Physician Assistant
DX: K85.20 Alcohol induced acute pancreatitis without necrosis or infection (principal); F10.10 Alcohol abuse, uncomplicated; I10 Essential (primary) hypertension; E78.5 Hyperlipidemia, unspecified; F41.9 Anxiety disorder, unspecified; E66.9 Obesity, unspecified; Z68.32 Body mass index [BMI] 32.0-32.9, adult
CPT/HCPCS: 36415; 71046; 74177; 76705; 80048; 80053; 80076; 82607; 82746; 83036; 83690; 83735; 84100; 84478; 84484; 85025; 85027; 85610; 85730; 93005; 96374; 96375; 99285; A9270; C9113; J0131; J0360; J1170; J1650; J2060; J2405; J2550; J3411; J7030; Q9967

== ENCOUNTER 2021-04-07 11:48 | Inpatient (IN) | payer BC, SELFPAY ==
[2021-04-07] VITALS (9 sets, daily range): BP systolic 111–137; BP diastolic 68–88; PULSE 76–98; RESP 16–18; TEMP 36.1–36.8; O2SAT 96–100; BMI 29.4
--- NOTE | ~2021-04-07 | CT_ITS ---
EXAMINATION: CT abdomen pelvis w con INDICATION: Nausea and vomiting, recent hospitalization for pancreatitis TECHNIQUE: Computed tomographic images of the abdomen and pelvis were obtained after the administrati on of 100 cc of Omnipaque 350 intravenous contrast. The dose-length product (DLP) was 926.91 mGy-cm. Automated exposure control and iterative reconstruction technique were employed. COMPARISON: 03/15/2021 FINDINGS: Minimal dependent atelectasis is present in the lung bases. The heart size is normal. The l iver, spleen, gallbladder, and adrenal glands are normal. There is an approximately 4.6 x 4.4 cm flui d collection in the head of the pancreas which extends into the peripancreatic space superiorly and a buts the posterior body of the stomach. The peripancreatic component measures approximately 9.2 x 3.8 cm. No internal foci of gas are identified. A horseshoe kidney is noted. There is mild upper abdomin al lymphadenopathy, likely reactive. There is no free intraperitoneal gas or evidence of bowel obstru ction. There is moderate lumbar spondylosis at L2-3. IMPRESSION: 1. Sequela of recent pancreatitis with large sterile acute necrotic collection involving the head of the pancreas and extending into the peripancreatic space. GI evaluation is recommended. Reviewed, dictated and finalized at location A. R ELECTRIC [employer]ACTITIONER
--- NOTE | ~2021-04-07 | XR_ITS ---
EXAMINATION: XR toe 1st LT min 2V DATE: 04/10/2021 12:44 INDICATION: Posttraumatic left great toe pain and swelling TECHNIQUE: Dorsal plantar, lateral and 2 oblique views of the left first toe were obtained. COMPARISON: None FINDINGS: Alignment is normal. No fracture. Joint spaces are normal. Soft tissues are unremarkable. IMPRESSION: Negative left great toe radiographs. Reviewed, dictated and finalized at location A. [employer]
[2021-04-07 12:38] LABS: Basophils Absolute Auto 0.1 K/mm3 (0.0-0.1); Basophils Percent Auto 0.4 % (0.2-1.2); Eosinophils Percent Auto 0.3 % (0-4.4); Hematocrit 41.6 % (42.0-52.0); Hemoglobin 14.5 g/dL (14.0-18.0); Immature Granulocyte Absolute 0.04 K/mm3 (0.00-0.031); Immature Granulocyte Percent A 0.3 % (0-0.5); Lymphocytes Percent Auto 9.5 % (18.3-44.2); Mean Corpuscular HGB Conc 34.9 g/dl (32-36); Mean Corpuscular Hemoglobin 31.5 pg (26-34); Mean Corpuscular Volume 90.2 fl (80-100); Mean Platelet Volume 9.7 fl (7.4-10.4); Monocytes Absolute Auto 1.8 K/mm3 (0.1-0.6); Monocytes Percent Auto 12.2 % (2.6-8.5); Neutrophils Absolute Auto 11.4 K/mm3 (1.3-6.7); Neutrophils Percent Auto 77.3 % (45.5-73.1); Platelet Count Result 483 k/mm3 (150-375); Red Blood Count 4.61 M/mm3 (4.6-6.20); Red Cell Distribution Width 12.1 % (11.5-14.5); White Blood Count 14.7 K/mm3 (4.5-10.0)
[2021-04-07] MEDS: SODIUM CHLORIDE 0.9% IV 1,000 ML 999 ML IV CONT (13:15)
[2021-04-07 13:17] LABS: Add Urine Microscopic? YES; Appearance Urine Cloudy (Clear); Bilirubin Urine 1+ (Negative); Blood Urine 1+ (Negative); Color Urine Amber (Yellow); Glucose Urine UA Negative (Negative); Ketones Urine 1+ mg/dL (Negative); Leukocyte Esterase Ur Negative LEU/UL (Negative); Mucus Urine Heavy /lpf; Nitrate Urine Negative (Negative); Protein Urine 2+ mg/dL (Negative)
[2021-04-07] MEDS: PROMETHAZINE HCL 25 MG/ML AMPUL 12.5 MG IV PUSH (13:19)
[2021-04-07 13:27] LABS: Alanine Aminotransferase 41 U/L (4-50); Albumin Level 4.4 g/dL (3.5-5.1); Alkaline Phosphatase 153 U/L (38-126); Anion Gap 13 mmol/L (8-16); Aspartate Amino Transferase 35 U/L (17-59); Bilirubin,Total 0.8 mg/dL (0.2-1.3); Blood Urea Nitrogen 24 mg/dL (9-20); Calcium 10.5 mg/dL (8.4-10.2); Carbon Dioxide 30 mmol/L (22-30); Chloride 94 mmol/L (98-107); Estimated CRCL calculation 110 ml/min; Estimated Glomerular Filt Rate > 60; Glucose 109 mg/dL (65-110); Lipase 153 U/L (23-300); Potassium 4.4 mmol/L (3.4-5.0); Sodium 137 mmol/L (137-145)
--- NOTE | 2021-04-07 14:24 | ED.GENADULT ---
HPI - General Adult General Chief complaint: Nausea/Vomiting/Diarrhea Stated complaint: n/v Time Seen by Provider: 04/07/21 12:18 History of Present Illness HPI narrative: Patient is a 40-year-old male who presents ER with epigastric pain and nausea/vomiting. Patient reports that he was recently hospitalized for pancreatitis. He was discharged and had been doing well. 2 weeks ago he decided he ate a piece of [employer] pizza when the abdominal pain returned. He has since been trying to adhere to a liquid diet in hopes that his symptoms would go away. Unfortunately continues to have some vomiting with persistent epigastric discomfort. No fevers or chills or sweats. He has not been drinking any alcohol. No exertional chest pain. No additional concerns. Related Data Home Medications Medication Instructions Recorded Confirmed atorvastatin 20 mg PO DAILY 03/15/21 04/07/21 fluoxetine 20 mg PO DAILY 03/15/21 04/07/21 famotidine [Pepcid] 20 mg PO DAILY 04/07/21 04/07/21 Allergies Allergy/AdvReac Type Severity Reaction Status Date / Time No Known Allergies Allergy Verified 03/15/21 17:08 Review of Systems Review of Systems: All systems reviewed & are unremarkable except as noted in HPI and below Constitutional: Constitutional: Denies chills, Denies fever(s) and Denies weakness ENT: Denies nasal congestion and Denies sore throat Cardiovascular: Cardiovascular: Denies chest pain, Denies rapid heart rate and Denies radiating jaw, neck or arm pain Respiratory: Respiratory: Denies cough, Denies dyspnea and Denies wheezing Gastrointestinal: Gastrointestinal: Reports abdominal pain, Denies diarrhea, Reports nausea and Reports vomiting Genitourinary: Genitourinary: Denies dysuria and Denies urinary incontinence [facility] Past Medical History Medical History (Updated 04/07/21 @ 23:56 by Aren Morales MD) Alcohol abuse Patient has abstained from alcohol since 03/15/2021. Anxiety Gastroesophageal reflux disease Hyperlipidemia Hypertension Pancreatitis Surgical History Surgical History (Updated 04/07/21 @ 22:15 by Eveline Quintanilla PA-C) History of bilateral inguinal hernia repair (~2010) History of repair of rotator cuff Bilateral. 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 Prior to his hospitalization in March 2021, he was drinking 5-6 vodka containing beverages a night containing about 9 shots of alcohol total. He is a lifelong nonsmoker and denies illicit substance use. He designates his , Valencia Alston, as his surrogate decision maker. Code status: Full code. Exam Narrative: GENERAL: Well-appearing, well-nourished, and in no acute distress. HEAD: Normocephalic, atraumatic. CHEST: Clear to auscultation. No respiratory distress. HEART: Regular rate and rhythm. Normal peripheral pulses. ABDOMEN: Soft, tender palpation epigastrium with mild guarding, nondistended, normal active bowel sounds. EXTREMITIES: Normal range of motion. No edema. SKIN: Warm, dry, no rash. NEURO: Alert and oriented x3. PSYCH: Normal mood and affect. Course Course Emergency Course: GI here recommends transfer to tertiary care center due to need for endoscopic ultrasound. Multiple facilities called in [facility] and [facility], all with multiple day waits. Discussed case with Dr. Dacosta at [facility] who is excepted the patient for transfer after GI had recommended medicine admission. There is a 3-day waiting list so patient will be observed within the hospital and not boarded in the emergency room. Patient will receive fluids and be kept NPO. Vital Sign
--- NOTE | 2021-04-07 14:57 | PC.NURSE ---
[place] bed wait 5 days [facility] bed wait 3-5 days
--- NOTE | 2021-04-07 15:02 | PC.NURSE ---
[facility]
--- NOTE | 2021-04-07 15:19 | PC.NURSE ---
[facility] and [facility] bed wait 5 days [facility] and [facility] wait list of [address] [facility] not accepting new pt
--- NOTE | 2021-04-07 18:30 | PM.IMHP ---
H&P: HPI History of Present Illness Date/Time: 04/07/21 18:30 Chief Complaint: Abdominal pain and vomiting. Narrative: This is a pleasant 40-year-old male with hypertension, hyperlipidemia, anxiety, and chronic alcohol abuse who presented to the emergency department earlier today from home for evaluation of abdominal pain and vomiting. He is known to the hospitalist service with a recent admission between 03/15/2021 and 03/18/2021 in which he was admitted for acute pancreatitis felt to be related to heavy alcohol use. Right upper quadrant ultrasound was unremarkable and his triglyceride level was well within normal limits. His symptoms improved with supportive care and he felt much better on discharge albeit not 100% back to normal. Once home he started eating a bland diet though about a week after discharge he ate a piece of [employer] and not long thereafter he developed nausea and a pressure-like discomfort in the upper abdomen. Symptoms have continued since that time despite putting himself on an NPO diet with ice chips. He also continues to have intermittent bouts of nonbilious, nonbloody emesis. Pepcid and ibuprofen have helped perhaps a bit but not significantly. CT of the abdomen and pelvis done today showed sequelae of recent pancreatitis with large sterile acute necrotic collection involving head of the pancreas and extending into the peripancreatic space. Dr. Carreon was consulted and he felt the patient would be best served at a tertiary care facility as he feels the patient needs an endoscopic ultrasound. The patient has been accepted at [facility] however a bed is not anticipated to be available for several days and thus he is being admitted for IV fluid rehydration and pain control. Review of Systems Review of Systems: Twelve systems were reviewed. He has not had a fever. Reports being quite fatigued and sleeping a lot. No cold or flu symptoms. He denies hematemesis. His stools have been solid an unremarkable although he has not been going frequently as he has not been eating much. He denies alcohol intake since his hospitalization and he has been doing good in that regard. Except as documented, all other systems were reviewed and are negative. [facility] Past Medical History Medical History (Updated 04/07/21 @ 22:21 by Eveline Quintanilla PA-C) Alcohol abuse Patient has abstained from alcohol since 03/15/2021. Anxiety Gastroesophageal reflux disease Hyperlipidemia Hypertension Pancreatitis Surgical History Surgical History (Updated 04/07/21 @ 22:15 by Eveline Quintanilla PA-C) History of bilateral inguinal hernia repair (~2010) History of repair of rotator cuff Bilateral. 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 Prior to his hospitalization in March 2021, he was drinking 5-6 vodka containing beverages a night containing about 9 shots of alcohol total. He is a lifelong nonsmoker and denies illicit substance use. He designates his , Valencia Alston, as his surrogate decision maker. Code status: Full code. Meds Home Medications and Allergies Home Medications Medication Instructions Recorded Confirmed Type atorvastatin 20 mg PO DAILY 03/15/21 03/15/21 History fluoxetine 20 mg PO DAILY 03/15/21 03/15/21 History folic acid 1 mg PO DAILY #30 tablet 03/18/21 Rx lisinopril 20 mg PO DAILY #30 tablet 03/18/21 Rx thiamine HCl (vitamin B1) 100 mg PO DAILY #30 tablet 03/18/21 Rx famotidine [Pepcid] 20 mg PO DAILY 04/07/21 04/07/21 History Allergies Allergy/AdvReac Type Severity Reaction Status Date / Time No Known Allergies Allergy Verified
--- NOTE | 2021-04-07 19:03 | PC.NURSE ---
This patient, Santosh Alston, was admitted to 2 Medical Room 259-01. Patient/family oriented to hospital policies and general routines including ID bracelet, bed and alarms, visiting hours, pain management, procedures, bathroom and other care routines, personal items, smoking policy, room service/diet, and visiting hours. Information on how to activate the Rapid Response Team has been discussed. Patient/Family are encouraged to report perceived risks to care and to ask questions if they do not understand what they are told or what they should do.
[2021-04-07] MEDS: LACTATED RINGERS 1,000 ML 125 ML IV CONT (21:15)
[2021-04-07] MEDS: ONDANSETRON INJ 4 MG/2 ML VIAL IV PUSH (21:19)
[2021-04-08 04:46] VITALS: BP 118/69; PULSE 66; RESP 16; TEMP 36.4; O2SAT 97
[2021-04-08] MEDS: LACTATED RINGERS 1,000 ML 125 ML IV CONT ×2 (05:15→14:32)
[2021-04-08 06:11] LABS: Hematocrit 37.5 % (42.0-52.0); Mean Corpuscular HGB Conc 34.7 g/dl (32-36); Mean Corpuscular Hemoglobin 31.4 pg (26-34); Mean Corpuscular Volume 90.6 fl (80-100); Mean Platelet Volume 9.7 fl (7.4-10.4); Platelet Count Result 397 k/mm3 (150-375); Red Blood Count 4.14 M/mm3 (4.6-6.20)
[2021-04-08 06:31] LABS: Alanine Aminotransferase 34 U/L (4-50); Albumin Level 4.1 g/dL (3.5-5.1); Alkaline Phosphatase 129 U/L (38-126); Anion Gap 11 mmol/L (8-16); Aspartate Amino Transferase 28 U/L (17-59); Bilirubin,Total 0.7 mg/dL (0.2-1.3); Blood Urea Nitrogen 20 mg/dL (9-20); Calcium 9.6 mg/dL (8.4-10.2); Carbon Dioxide 27 mmol/L (22-30); Chloride 95 mmol/L (98-107); Estimated CRCL calculation 123 ml/min; Estimated Glomerular Filt Rate > 60; Glucose 96 mg/dL (65-110); Lipase 140 U/L (23-300); Magnesium 2.2 mg/dL (1.6-2.3); Potassium 4.2 mmol/L (3.4-5.0); Sodium 133 mmol/L (137-145)
[2021-04-08] MEDS: ONDANSETRON INJ 4 MG/2 ML VIAL IV PUSH ×2 (06:59→11:30)
--- NOTE | 2021-04-08 07:20 | PM.IMPN ---
Progress Note: A&P Assessment and Plan (1) Peripancreatic fluid collection: Code(s): K86.89 - Other specified diseases of pancreas Status: Acute Assessment and Plan: Dr. Carreon Recommends transfer to a tertiary care center for EUS. accepted to [facility] supportive care including IV fluid rehydration antiemetics analgesics (2) Dehydration: Code(s): E86.0 - Dehydration Status: Acute Assessment and Plan: Continue IV fluid rehydration. Probably from vomiting (3) Hypertension: Code(s): I10 - Essential (primary) hypertension Status: Chronic Assessment and Plan: Current BP 129/69 stable. Continue lisinopril trend blood pressures adjust therapy as necessary (4) Hyperlipidemia: Code(s): E78.5 - Hyperlipidemia, unspecified Status: Chronic Assessment and Plan: Continue statin LFTs within normal limits. (5) Anxiety: Code(s): F41.9 - Anxiety disorder, unspecified Status: Chronic Assessment and Plan: No acute issues Continue fluoxetine. Trend mood and behavior (6) Gastroesophageal reflux disease: Code(s): K21.9 - Gastro-esophageal reflux disease without esophagitis Status: Acute Assessment and Plan: change Pepcid to Protonix b.i.d. (7) Vomiting: Code(s): R11.10 - Vomiting, unspecified Status: Acute Assessment and Plan: reports of vomiting multiple times throughout the day GI on the case antiemetics ordered IV hydration (8) Alcohol abuse: Code(s): F10.10 - Alcohol abuse, uncomplicated Status: Acute Assessment and Plan: folic acid and thiamine ordered [facility] protocol Librium Subjective Date/time seen: 04/08/21 0720 Interval history: Date/Time: 04/07/21 18:30 Narrative: This is a pleasant 40-year-old male with hypertension, hyperlipidemia, anxiety, and chronic alcohol abuse who presented to the emergency department earlier today from home for evaluation of abdominal pain and vomiting. He is known to the hospitalist service with a recent admission between 03/15/2021 and 03/18/2021 in which he was admitted for acute pancreatitis felt to be related to heavy alcohol use. Right upper quadrant ultrasound was unremarkable and his triglyceride level was well within normal limits. His symptoms improved with supportive care and he felt much better on discharge albeit not 100% back to normal. Once home he started eating a bland diet though about a week after discharge he ate a piece of [employer] and not long thereafter he developed nausea and a pressure-like discomfort in the upper abdomen. Symptoms have continued since that time despite putting himself on an NPO diet with ice chips. He also continues to have intermittent bouts of nonbilious, nonbloody emesis. Pepcid and ibuprofen have helped perhaps a bit but not significantly. CT of the abdomen and pelvis done today showed sequelae of recent pancreatitis with large sterile acute necrotic collection involving head of the pancreas and extending into the peripancreatic space. Dr. Carreon was consulted and he felt the patient would be best served at a tertiary care facility as he feels the patient needs an endoscopic ultrasound. The patient has been accepted at [facility] however a bed is not anticipated to be available for several days and thus he is being admitted for IV fluid rehydration and pain control. Date/Time Seen 04/08/21 0720 patient seems to be doing okay today however he is still vomiting. And says that he is having shortness of breath with walking activity. Patient denies having sweats fevers and chills. He states that when he vomits he is unaware to just happens. He states that it his vomit has blood in it which is coffee-ground emesis. He does have chest pain which he states is from t
--- NOTE | 2021-04-08 07:20 | P.PNIM_ITS ---
Progress Note: A&P Assessment and Plan (1) Peripancreatic fluid collection: Code(s): K86.89 - Other specified diseases of pancreas Status: Acute Assessment and Plan: * Dr. Carreon Recommends transfer to a tertiary care center for EUS. * accepted to [facility] * supportive care including IV fluid rehydration * antiemetics * analgesics (2) Dehydration: Code(s): E86.0 - Dehydration Status: Acute Assessment and Plan: * Continue IV fluid rehydration. * Probably from vomiting (3) Hypertension: Code(s): I10 - Essential (primary) hypertension Status: Chronic Assessment and Plan: * Current BP 129/69 * stable. * Continue lisinopril * trend blood pressures * adjust therapy as necessary (4) Hyperlipidemia: Code(s): E78.5 - Hyperlipidemia, unspecified Status: Chronic Assessment and Plan: * Continue statin * LFTs within normal limits. (5) Anxiety: Code(s): F41.9 - Anxiety disorder, unspecified Status: Chronic Assessment and Plan: * No acute issues * Continue fluoxetine. * Trend mood and behavior (6) Gastroesophageal reflux disease: Code(s): K21.9 - Gastro-esophageal reflux disease without esophagitis Status: Acute Assessment and Plan: * change Pepcid to Protonix b.i.d. (7) Vomiting: Code(s): R11.10 - Vomiting, unspecified Status: Acute Assessment and Plan: * reports of vomiting multiple times throughout the day * GI on the case * antiemetics ordered * IV hydration (8) Alcohol abuse: Code(s): F10.10 - Alcohol abuse, uncomplicated Status: Acute Assessment and Plan: * folic acid and thiamine ordered * [place] protocol * Librium Subjective Date/time seen: 04/08/21 0720 Interval history: Date/Time: 04/07/21 18:30 Narrative: This is a pleasant 40-year-old male with hypertension, hyperlipidemia, anxiety, and chronic alcohol abuse who presented to the emergency department earlier today from home for evaluation of abdominal pain and vomiting. He is known to the hospitalist service with a recent admission between 03/15/2021 and 03/18/2021 in which he was admitted for acute pancreatitis felt to be related to heavy alcohol use. Right upper quadrant ultrasound was unremarkable and his triglyceride level was well within normal limits. His symptoms improved with supportive care and he felt much better on discharge albeit not 100% back to normal. Once home he started eating a bland diet though about a week after discharge he ate a piece of [employer] and not long thereafter he developed nausea and a pressure-like discomfort in the upper abdomen. Symptoms have continued since that time despite putting himself on an NPO diet with ice chips. He also continues to have intermittent bouts of nonbilious, nonbloody emesis. Pepcid and ibuprofen have helped perhaps a bit but not significantly. CT of the abdomen and pelvis done today showed sequelae of recent pancreatitis with large sterile acute necrotic collection involving head of the pancreas and extending into the peripancreatic space. Dr. Carreon was consulted and he felt the patient would be best served at a tertiary care facility as he feels the patient needs an endoscopic ultrasound. The patient has been accepted at [facility] however a bed is not anticipated to be available for several days and thus he is being
[2021-04-08] MEDS: PANTOPRAZOLE SODIUM IV 40 MG VIAL IV PUSH ×2 (09:26→20:35)
[2021-04-08 14:18] VITALS: BP 129/69; PULSE 86; RESP 14; TEMP 36.1; O2SAT 99
--- NOTE | 2021-04-08 18:44 | WPDGICN ---
Assessment and Plan Assessment and plan (1) Subacute pancreatic necrosis: Code(s): K85.91 - Acute pancreatitis with uninfected necrosis, unspecified Status: Acute Assessment and Plan: large necrotic collection also abuts the posterior body of the stomach, he is unable to eat probably partial gastric outlet obstruction with persistent nausea he is on waiting list to be transferred to [facility], most likely he will need EUS-guided drainage and endoscopic necrosectomy (2) Nausea and vomiting in adult: Code(s): R11.2 - Nausea with vomiting, unspecified Status: Acute Assessment and Plan: antiemetics, pain control (3) Anorexia: Code(s): R63.0 - Anorexia Status: Acute Assessment and Plan: since he has not had significant nutritional intake for over a week, will start parenteral nutrition (4) Dehydration: Code(s): E86.0 - Dehydration Status: Acute Assessment and Plan: on iv fluids (5) Alcohol abuse: Code(s): F10.10 - Alcohol abuse, uncomplicated Status: Acute Assessment and Plan: he understand that can drink anymore thiamine (6) Acute pancreatitis: Qualifiers: Acute pancreatitis complication: no infection or necrosis Pancreatitis type: alcohol induced Qualified Code(s): K85.20 - Alcohol induced acute pancreatitis without necrosis or infection Code(s): K85.90 - Acute pancreatitis without necrosis or infection, unspecified Status: Acute GI Consult Note Consult date/time: 04/08/21 18:44 Reason for consult: pancreatitis, large necrotic collection of pancreas HPI: Santosh Alston is a 40 year old male who was admitted 03/15/21 for 3 days for alcoholic pancreatitis (work up negative for other causes)- normally drinks 8 shots of vodka daily for last 2 years. He did not drink after discharge but says that after eating pizza he developed worsening pain in epigastric with radiation to sides, he has nausea and unable to eat much of anything for almost 2 weeks. Finally he came here because anorexia, persistent pain. CT of the abdomen and pelvis reviewed and showed 4.6 x 4.4 cm fluid collection in the head of the pancreas which extends into the peripancreatic space superiorly and abuts the posterior body of the stomach. The peripancreatic component measures approximately 9.2 x 3.8 cm. He is admitted for pain control and medical management. I talked to ER physician before admission and recommended transfer to tertiary hospital for EUS drainage of large collection but unfortunately no beds available. Review of Systems Constitutional: Constitutional: Denies headache(s) and Denies weakness Eyes: Eyes: Denies blurry vision ENT: Reports Normal hearing present, Denies headache(s) and Denies neck pain Cardiovascular: Cardiovascular: Denies chest pain and Denies dyspnea Respiratory: Respiratory: Denies dyspnea Gastrointestinal: Gastrointestinal: Reports abdominal pain and Reports nausea Genitourinary: Genitourinary: Denies dysuria Musculoskeletal: Musculoskeletal: Denies neck pain Integumentary/Breasts: Skin/Breast: Denies dry skin Neurologic: Reports Normal hearing present, Denies headache(s) and Denies weakness Psychiatric: Psychiatric: Denies anxiety Endocrine: Endocrine: Denies change in body appearance Hematologic/Lymphatic: Hematologic/Lymphatic: Denies easy bleeding Allergic/Immunologic: Allergic/Immunologic: Denies urticaria PMFSH Past Medical History Medical History (Updated 04/08/21 @ 18:48 by Boubacar Carreon MD) Alcohol abuse Patient has abstained from alcohol since 03/15/2021. Anorexia Anxiety Gastroesophageal reflux disease Hyperlipidemia Hypertension Nausea and vomiting in adult Pancreatitis Subacute pancreatic necrosis Surgical History Surgical History (Updated 04/07/21 @ 22:15 by Eveline Quintanilla PA-C) History of bilateral inguinal hernia repair (~2010) History of r
[2021-04-08 19:43] LABS: Basophils Absolute Auto 0.1 K/mm3 (0.0-0.1); Basophils Percent Auto 0.4 % (0.2-1.2); Eosinophils Absolute Auto 0.1 K/mm3 (0-0.3); Eosinophils Percent Auto 0.4 % (0-4.4); Hematocrit 38.5 % (42.0-52.0); Immature Granulocyte Absolute 0.05 K/mm3 (0.00-0.031); Immature Granulocyte Percent A 0.4 % (0-0.5); Lymphocytes Percent Auto 13.7 % (18.3-44.2); Mean Corpuscular HGB Conc 33.8 g/dl (32-36); Mean Corpuscular Hemoglobin 31.5 pg (26-34); Mean Corpuscular Volume 93.2 fl (80-100); Mean Platelet Volume 10.2 fl (7.4-10.4); Monocytes Absolute Auto 1.3 K/mm3 (0.1-0.6); Monocytes Percent Auto 10.8 % (2.6-8.5); Neutrophils Absolute Auto 8.7 K/mm3 (1.3-6.7); Neutrophils Percent Auto 74.3 % (45.5-73.1); Platelet Count Result 369 k/mm3 (150-375); Red Blood Count 4.13 M/mm3 (4.6-6.20); White Blood Count 11.7 K/mm3 (4.5-10.0)
[2021-04-08 19:46] LABS: Alanine Aminotransferase 32 U/L (4-50); Albumin Level 4.1 g/dL (3.5-5.1); Alkaline Phosphatase 121 U/L (38-126); Anion Gap 10 mmol/L (8-16); Aspartate Amino Transferase 26 U/L (17-59); Bilirubin,Total 0.8 mg/dL (0.2-1.3); Blood Urea Nitrogen 18 mg/dL (9-20); Calcium 9.6 mg/dL (8.4-10.2); Carbon Dioxide 27 mmol/L (22-30); Chloride 94 mmol/L (98-107); Estimated CRCL calculation 110 ml/min; Estimated Glomerular Filt Rate > 60; Glucose 83 mg/dL (65-110); Magnesium 2.1 mg/dL (1.6-2.3); Potassium 3.9 mmol/L (3.4-5.0); Sodium 131 mmol/L (137-145)
[2021-04-08 19:53] LABS: Transferrin 162 mg/dL (206-381)
[2021-04-08 20:34] VITALS: BP 128/77; PULSE 74; RESP 18; TEMP 36.6; O2SAT 99
[2021-04-08] MEDS: AMINO ACIDS 4.25%/D5W/LYTES/CA 2,000 ML 80 ML IV CONT (20:35)
[2021-04-09 05:39] VITALS: BP 125/69; PULSE 64; RESP 16; TEMP 37; O2SAT 97
[2021-04-09 05:41] LABS: Basophils Absolute Auto 0.1 K/mm3 (0.0-0.1); Basophils Percent Auto 0.5 % (0.2-1.2); Eosinophils Absolute Auto 0.1 K/mm3 (0-0.3); Eosinophils Percent Auto 0.9 % (0-4.4); Hematocrit 36.1 % (42.0-52.0); Hemoglobin 12.3 g/dL (14.0-18.0); Immature Granulocyte Absolute 0.03 K/mm3 (0.00-0.031); Immature Granulocyte Percent A 0.3 % (0-0.5); Lymphocytes Absolute Auto 1.33 K/mm3 (0.9-3.2); Mean Corpuscular HGB Conc 34.1 g/dl (32-36); Mean Corpuscular Hemoglobin 30.4 pg (26-34); Mean Corpuscular Volume 89.1 fl (80-100); Mean Platelet Volume 9.8 fl (7.4-10.4); Monocytes Absolute Auto 1.2 K/mm3 (0.1-0.6); Monocytes Percent Auto 12.1 % (2.6-8.5); Neutrophils Absolute Auto 6.9 K/mm3 (1.3-6.7); Neutrophils Percent Auto 72.2 % (45.5-73.1); Platelet Count Result 341 k/mm3 (150-375); Red Blood Count 4.05 M/mm3 (4.6-6.20); Red Cell Distribution Width 11.8 % (11.5-14.5); White Blood Count 9.5 K/mm3 (4.5-10.0)
[2021-04-09 05:42] LABS: Potassium 4.1 mmol/L (3.4-5.0)
[2021-04-09 06:01] LABS: Alanine Aminotransferase 28 U/L (4-50); Albumin Level 3.7 g/dL (3.5-5.1); Alkaline Phosphatase 104 U/L (38-126); Anion Gap 8 mmol/L (8-16); Aspartate Amino Transferase 26 U/L (17-59); Bilirubin,Total 0.5 mg/dL (0.2-1.3); Blood Urea Nitrogen 17 mg/dL (9-20); Calcium 9.4 mg/dL (8.4-10.2); Carbon Dioxide 28 mmol/L (22-30); Chloride 97 mmol/L (98-107); Estimated CRCL calculation 123 ml/min; Estimated Glomerular Filt Rate > 60; Glucose 115 mg/dL (65-110); Phosphorus 5.3 mg/dL (2.5-4.5); Sodium 133 mmol/L (137-145)
[2021-04-09 06:31] LABS: Glucose Point of Care 103 mg/dl (65-105)
[2021-04-09 06:42] LABS: Triglycerides 76 mg/dL (<150)
[2021-04-09 06:45] LABS: Lipase 143 U/L (23-300)
[2021-04-09] MEDS: FAMOTIDINE 20 MG TABLET PO (09:25)
[2021-04-09] MEDS: FLUoxetine HCL 20 MG CAPSULE PO (09:25)
[2021-04-09] MEDS: THIAMINE HCL 100 MG TABLET PO (09:25)
[2021-04-09] MEDS: PANTOPRAZOLE SODIUM IV 40 MG VIAL IV PUSH ×2 (09:25→20:23)
[2021-04-09] MEDS: FOLIC ACID 1 MG TABLET PO (09:25)
[2021-04-09] MEDS: lisinopriL 20 MG TABLET PO (09:25)
[2021-04-09] MEDS: ATORVASTATIN 20 MG TABLET PO (09:25)
[2021-04-09 11:07] VITALS: BMI 24.6
[2021-04-09 11:40] LABS: Glucose Point of Care 96 mg/dl (65-105)
[2021-04-09 14:00] VITALS: BP 132/74; PULSE 71; RESP 18; TEMP 36.7; O2SAT 100
--- NOTE | 2021-04-09 14:35 | P.PNIM_ITS ---
Progress Note: A&P Assessment and Plan (1) Peripancreatic fluid collection: Code(s): K86.89 - Other specified diseases of pancreas <Marcos BrightFANTASMA - Last Filed: 04/10/21 07:37> Status: Acute <Marcos Bright FANTASMAC - Last Filed: 04/10/21 07:37> Assessment and Plan: * Dr. Carreon Recommends transfer to a tertiary care center for EUS. * accepted to [facility] * supportive care including IV fluid rehydration * antiemetics * analgesics <Marcos BrightCHRISTOS-C - Last Filed: 04/10/21 07:37> (2) Dehydration: Code(s): E86.0 - Dehydration <Marcos BrightANDREA - Last Filed: 04/10/21 07:37> Status: Acute <Marcos BrightCHRISTOSKaterineEllie - Last Filed: 04/10/21 07:37> Assessment and Plan: * Continue IV fluid rehydration. * Probably from vomiting <Marcos BrightCHRISTOSDustin - Last Filed: 04/10/21 07:37> (3) Hypertension: Code(s): I10 - Essential (primary) hypertension <Marcos BrightANDREA - Last Filed: 04/10/21 07:37> Status: Chronic <Marcos BrightCHRISTOSKaterineC - Last Filed: 04/10/21 07:37> Assessment and Plan: * Current BP 132/74 * stable. * Continue lisinopril * trend blood pressures * adjust therapy as necessary <Marcos BrightANDREA - Last Filed: 04/10/21 07:37> (4) Hyperlipidemia: Code(s): E78.5 - Hyperlipidemia, unspecified <Marcos BrightANDREA - Last Filed: 04/10/21 07:37> Status: Chronic <Marcos BrightANDREA - Last Filed: 04/10/21 07:37> Assessment and Plan: * Continue statin * LFTs within normal limits. <Marcos CassidyANDREA mccauley - Last Filed: 04/10/21 07:37> (5) Anxiety: Code(s): F41.9 - Anxiety disorder, unspecified <Marcos CassidyANDREA mccauley - Last Filed: 04/10/21 07:37> Status: Chronic <Marcos BrightANDREA - Last Filed: 04/10/21 07:37> Assessment and Plan: * No acute issues * Continue fluoxetine. * Trend mood and behavior <Marcos CassidyANDREA mccauley - Last Filed: 04/10/21 07:37> (6) Gastroesophageal reflux disease: Code(s): K21.9 - Gastro-esophageal reflux disease without esophagitis <Marcos CassidyANDREA mccauley - Last Filed: 04/10/21 07:37> Status: Acute <Marcos CassidyANDREA mccauley - Last Filed: 04/10/21 07:37> Assessment and Plan: * change Pepcid to Protonix b.i.d. <Marcos Miranda ANDREA Bright - Last Filed: 04/10/21 07:37> (7) Vomiting: Code(s): R11.10 - Vomiting, unspecified <Marcos CassidyANDREA mccauley - Last Filed: 04/10/21 07:37> Status: Acute <Marcos CassidyANDREA mccauley - Last Filed: 04/10/21 07:37> Assessment and Plan: * reports of vomiting multiple times throughout the day * GI on the case * antiemetics ordered * IV hydration <Marcos Miranda ADNREA Bright - Last Filed: 04/10/21 07:37> (8) Alcohol abuse: Code(s): F10.10 - Alcohol abuse, uncomplicated <Marcos Miranda ANDREA Bright - Last Filed: 04/10/21 07:37> Status: Acute <Marcos CassidyANDREA mccauley - Last Filed: 04/10/21 07:37> Assessment and Plan: * folic acid and thiamine ordered * [facility] protocol * Librium <Marcos HendrixANDREA Rolle - Last Filed: 04/10/21 07:37> Additional Plan Patient seen and examined independently. S:40yo male with hx of alcohol abuse and recent pancreatitis here for abdominal pain. No CP or SOB. Abd pain much better. +flatus but no BMs O: AF/VSS. NARD. Lungs clear. RRR. Abd soft with mini
--- NOTE | 2021-04-09 14:35 | PM.IMPN ---
Progress Note: A&P Assessment and Plan (1) Peripancreatic fluid collection: Code(s): K86.89 - Other specified diseases of pancreas <Marcos CassidyANDREA mccauley - Last Filed: 04/10/21 07:37> Status: Acute <Marcos BrightFANTASMAC - Last Filed: 04/10/21 07:37> Assessment and Plan: Dr. Carreon Recommends transfer to a tertiary care center for EUS. accepted to [facility] supportive care including IV fluid rehydration antiemetics analgesics <Marcos CassidyCHRISTOS mccauley-C - Last Filed: 04/10/21 07:37> (2) Dehydration: Code(s): E86.0 - Dehydration <Marcos BrightANDREA - Last Filed: 04/10/21 07:37> Status: Acute <Marcos BrightANDREA - Last Filed: 04/10/21 07:37> Assessment and Plan: Continue IV fluid rehydration. Probably from vomiting <Marcos CassidyFANTASMA mccauleyC - Last Filed: 04/10/21 07:37> (3) Hypertension: Code(s): I10 - Essential (primary) hypertension <Marcos CassidyFANTASMA mccauleyC - Last Filed: 04/10/21 07:37> Status: Chronic <Marcos BrightFANTASMAC - Last Filed: 04/10/21 07:37> Assessment and Plan: Current BP 132/74 stable. Continue lisinopril trend blood pressures adjust therapy as necessary <Marcos CassidyANDREA mccauley - Last Filed: 04/10/21 07:37> (4) Hyperlipidemia: Code(s): E78.5 - Hyperlipidemia, unspecified <Marcos CassidyCHRISTOS mccauley-C - Last Filed: 04/10/21 07:37> Status: Chronic <Marcos CassidyANDREA mccauley - Last Filed: 04/10/21 07:37> Assessment and Plan: Continue statin LFTs within normal limits. <Marcos CassidyCHRISTOS mccauley-C - Last Filed: 04/10/21 07:37> (5) Anxiety: Code(s): F41.9 - Anxiety disorder, unspecified <Marcos CassidyANDREA mccauley - Last Filed: 04/10/21 07:37> Status: Chronic <Marcos CassidyANDREA mccauley - Last Filed: 04/10/21 07:37> Assessment and Plan: No acute issues Continue fluoxetine. Trend mood and behavior <Marcos CassidyANDREA mccauley - Last Filed: 04/10/21 07:37> (6) Gastroesophageal reflux disease: Code(s): K21.9 - Gastro-esophageal reflux disease without esophagitis <Marcos CassidyANDREA mccauley - Last Filed: 04/10/21 07:37> Status: Acute <Marcos CassidyANDREA mccauley - Last Filed: 04/10/21 07:37> Assessment and Plan: change Pepcid to Protonix b.i.d. <Marcos Miranda ANDREA Bright - Last Filed: 04/10/21 07:37> (7) Vomiting: Code(s): R11.10 - Vomiting, unspecified <Marcos CassidyANDREA mccauley - Last Filed: 04/10/21 07:37> Status: Acute <Marcos CassidyANDREA mccauley - Last Filed: 04/10/21 07:37> Assessment and Plan: reports of vomiting multiple times throughout the day GI on the case antiemetics ordered IV hydration <Marcos CassidyANDREA mccauley - Last Filed: 04/10/21 07:37> (8) Alcohol abuse: Code(s): F10.10 - Alcohol abuse, uncomplicated <Marcos Miranda ANDREA Bright - Last Filed: 04/10/21 07:37> Status: Acute <Marcos CassidyANDREA mccauley - Last Filed: 04/10/21 07:37> Assessment and Plan: folic acid and thiamine ordered [facility] protocol Librium <Marcos Miranda ANDREA Bright - Last Filed: 04/10/21 07:37> Additional Plan Patient seen and examined independently. S:40yo male with hx of alcohol abuse and recent pancreatitis here for abdominal pain. No CP or SOB. Abd pain much better. +flatus but no BMs O: AF/VSS. NARD. Lungs clear. RRR. Abd soft with minimal epigatric pain. No pedal edema. A/P:Peripanc fluid collection - doubt infectious. Dehydrtation. HTN. Alcohol abuse. Anxiety Agree with the JAE's evaluation, assessment and plan. Discussed with JAE. Lipase normal. Okay to stop pepcid since on Protonix. Awaiting bed placement. <Romel Barclay MD - Last Filed: 04/10/21 07:23> Time Spent With Patient Time with patient: 15 - 25 minutes <ANDREA Belcher La
--- NOTE | 2021-04-09 16:30 | WPDGIPROGNO ---
Progress Note: A&P Assessment and Plan (1) Subacute pancreatic necrosis: Code(s): K85.91 - Acute pancreatitis with uninfected necrosis, unspecified Status: Acute Assessment and Plan: pain and nausea better with medical management he would like to try liquid diet on TPN (he has not had real food over last 2 weeks) awaiting transfer to [facility] (most likely he will need EUS-guided drainage and endoscopic necrosectomy) (2) Nausea and vomiting in adult: Code(s): R11.2 - Nausea with vomiting, unspecified Status: Acute Assessment and Plan: improved (3) Alcohol abuse: Code(s): F10.10 - Alcohol abuse, uncomplicated Status: Acute Assessment and Plan: he will try to be abstinent now (4) Epigastric pain: Code(s): R10.13 - Epigastric pain Status: Acute Assessment and Plan: controlled (5) Anorexia: Code(s): R63.0 - Anorexia Status: Acute Subjective Date/time seen: 04/09/21 16:30 Interval history: doing better, still pain but controlled, last time had emesis yesterday. Review of Systems Review of Systems: All systems reviewed & are unremarkable except as noted in HPI and below Exam Const: General: comfortable and no acute distress HENMT: General nose exam: Normal nares present Eyes: Sclera: sclerae normal Neck: Neck: supple Resp: Effort & Inspection: normal respiratory effort Cardio: Rate: regular rate GI: GI Palp: Yes Soft to palpation and Yes Tenderness to palpation present (GI) (ttp in epigastric, no rebound) Auscultation: normal bowel sounds Skin: General skin exam: no rashes or lesions noted Neuro: Speech: normal speech Motor exam (neuro): Normal motor muscle tone present throughout Extrem: General: normal to inspection Psych: Mental Status: mental status grossly normal Objective Data Vital Signs Vital Signs: Vital Signs - 24 hr 04/08/21 20:34 04/09/21 05:39 04/09/21 14:00 Temperature 97.8 F 98.6 F 98.0 F Pulse Rate 74 64 71 Respiratory Rate 18 16 18 Blood Pressure 128/77 125/69 132/74 Pulse Oximetry 99 97 100 Intake/Output Intake/Output: Intake & Output 04/06/21 04/07/21 04/08/21 04/09/21 23:59 23:59 23:59 23:59 Intake Total 1000 1999 764 Balance 1000 1999 764 Meds/Results Medications: Active Medications Generic Name Dose Route Start Last Admin Trade Name Dakotahq PRN Reason Stop Dose Admin Atorvastatin Calcium 20 mg 04/08/21 09:00 04/09/21 09:25 Atorvastatin 20 Mg Tablet PO 20 mg DAILY [place] Administration Chlordiazepoxide HCl 25 mg 04/08/21 15:33 Chlordiazepoxide (*Crx) 25 Mg Capsule PO Q8H PRN Anxiety Famotidine 20 mg 04/08/21 09:00 04/09/21 09:25 Famotidine 20 Mg Tablet PO 20 mg DAILY [place] Administration Fluoxetine HCl 20 mg 04/08/21 09:00 04/09/21 09:25 Fluoxetine Hcl 20 Mg Capsule PO 20 mg DAILY [place] Administration Folic Acid 1 mg 04/08/21 09:00 04/09/21 09:25 Folic Acid 1 Mg Tablet PO 1 mg DAILY [place] Administration Dextrose 1,000 mls @ 50 mls/hr 04/08/21 18:43 Dextrose 10% IV CONT .Q20H PRN if PN is interrupted Amino Acids/Electrolytes/Dextrose 2,000 mls @ 80 mls/hr 04/08/21 19:00 04/09/21 06:09 Clinimix E 4.25%/5% Solution IV CONT 80 mls/hr .Q24H [place] Infusion Protocol Lisinopril 20 mg 04/08/21 09:00 04/09/21 09:25 Lisinopril 20 Mg Tablet PO 20 mg DAILY [place] Administration Morphine Sulfate 4 mg 04/07/21 17:43 Morphine Sulfate (*Crx) 4 Mg/Ml Inj IV PUSH Q2H PRN Pain Rated 7-10 Ondansetron HCl 4 mg 04/07/21 17:43 04/08/21 11:30 Ondansetron Inj 4 Mg/2 Ml Vial IV PUSH 4 mg Q4H PRN Administration Nausea Pantoprazole Sodium 40 mg 04/08/21 09:00 04/09/21 09:25 Pantoprazole Sodium Iv 40 Mg Vial IV PUSH 40 mg Q12HR [place] Administration Thiamine HCl 100 mg 04/08/21 09:00 04/09/21 09:25 Thiamine Hcl 100 Mg Tablet PO 100 m
[2021-04-09 18:07] LABS: Glucose Point of Care 104 mg/dl (65-105)
[2021-04-09] MEDS: AMINO ACIDS 4.25%/D5W/LYTES/CA 2,000 ML 80 ML IV CONT (19:33)
[2021-04-09 21:03] VITALS: BP 109/63; PULSE 63; RESP 16; TEMP 36.4; O2SAT 100
[2021-04-10 00:16] LABS: Glucose Point of Care 115 mg/dl (65-105)
[2021-04-10 05:53] VITALS: BP 124/66; PULSE 61; RESP 14; TEMP 36.3; O2SAT 96
[2021-04-10 06:13] LABS: Anion Gap 8 mmol/L (8-16); Blood Urea Nitrogen 14 mg/dL (9-20); Calcium 9.5 mg/dL (8.4-10.2); Carbon Dioxide 29 mmol/L (22-30); Chloride 97 mmol/L (98-107); Estimated CRCL calculation 110 ml/min; Estimated Glomerular Filt Rate > 60; Glucose 117 mg/dL (65-110); Phosphorus 5.2 mg/dL (2.5-4.5); Potassium 4.3 mmol/L (3.4-5.0); Sodium 134 mmol/L (137-145)
[2021-04-10 06:54] LABS: Glucose Point of Care 108 mg/dl (65-105)
[2021-04-10] MEDS: FLUoxetine HCL 20 MG CAPSULE PO (08:34)
[2021-04-10] MEDS: lisinopriL 20 MG TABLET PO (08:34)
[2021-04-10] MEDS: FOLIC ACID 1 MG TABLET PO (08:34)
[2021-04-10] MEDS: ATORVASTATIN 20 MG TABLET PO (08:35)
[2021-04-10] MEDS: PANTOPRAZOLE SODIUM IV 40 MG VIAL IV PUSH ×2 (08:35→22:08)
[2021-04-10] MEDS: THIAMINE HCL 100 MG TABLET PO (08:35)
--- NOTE | 2021-04-10 08:40 | PM.IMPN ---
Progress Note: A&P Assessment and Plan (1) Peripancreatic fluid collection: Code(s): K86.89 - Other specified diseases of pancreas Status: Acute Assessment and Plan: Dr. Carreon Recommends transfer to a tertiary care center for EUS. accepted to [facility] supportive care including IV fluid rehydration antiemetics analgesics (2) Subacute pancreatic necrosis: Code(s): K85.91 - Acute pancreatitis with uninfected necrosis, unspecified Status: Acute Assessment and Plan: See above (3) Toe pain, left: Code(s): M79.675 - Pain in left toe(s) Status: Acute Assessment and Plan: Xrays indicate no abnormality Ice pack (4) Dehydration: Code(s): E86.0 - Dehydration Status: Acute Assessment and Plan: Continue IV fluid rehydration. Probably from vomiting (5) Hypertension: Code(s): I10 - Essential (primary) hypertension Status: Chronic Assessment and Plan: Current BP 113/68 stable. Continue lisinopril trend blood pressures adjust therapy as necessary (6) Hyperlipidemia: Code(s): E78.5 - Hyperlipidemia, unspecified Status: Chronic Assessment and Plan: Continue statin LFTs within normal limits. (7) Anxiety: Code(s): F41.9 - Anxiety disorder, unspecified Status: Chronic Assessment and Plan: No acute issues Continue fluoxetine. Trend mood and behavior (8) Gastroesophageal reflux disease: Code(s): K21.9 - Gastro-esophageal reflux disease without esophagitis Status: Acute Assessment and Plan: change Pepcid to Protonix b.i.d. (9) Vomiting: Code(s): R11.10 - Vomiting, unspecified Status: Acute Assessment and Plan: reports of vomiting multiple times throughout the day GI on the case antiemetics ordered IV hydration (10) Alcohol abuse: Code(s): F10.10 - Alcohol abuse, uncomplicated Status: Acute Assessment and Plan: folic acid and thiamine ordered [facility] protocol Librium Time Spent With Patient Time with patient: 25 - 35 minutes Subjective Date/time seen: 04/10/21 08:40 Interval history: Date/Time: 04/07/21 18:30 Narrative: This is a pleasant 40-year-old male with hypertension, hyperlipidemia, anxiety, and chronic alcohol abuse who presented to the emergency department earlier today from home for evaluation of abdominal pain and vomiting. He is known to the hospitalist service with a recent admission between 03/15/2021 and 03/18/2021 in which he was admitted for acute pancreatitis felt to be related to heavy alcohol use. Right upper quadrant ultrasound was unremarkable and his triglyceride level was well within normal limits. His symptoms improved with supportive care and he felt much better on discharge albeit not 100% back to normal. Once home he started eating a bland diet though about a week after discharge he ate a piece of [employer] and not long thereafter he developed nausea and a pressure-like discomfort in the upper abdomen. Symptoms have continued since that time despite putting himself on an NPO diet with ice chips. He also continues to have intermittent bouts of nonbilious, nonbloody emesis. Pepcid and ibuprofen have helped perhaps a bit but not significantly. CT of the abdomen and pelvis done today showed sequelae of recent pancreatitis with large sterile acute necrotic collection involving head of the pancreas and extending into the peripancreatic space. Dr. Carreon was consulted and he felt the patient would be best served at a tertiary care facility as he feels the patient needs an endoscopic ultrasound. The patient has been accepted at [facility] however a bed is not anticipated to be available for several days and thus he is being admitted for IV fluid rehydration and pain control.
--- NOTE | 2021-04-10 08:40 | P.PNIM_ITS ---
Progress Note: A&P Assessment and Plan (1) Peripancreatic fluid collection: Code(s): K86.89 - Other specified diseases of pancreas Status: Acute Assessment and Plan: * Dr. Carreon Recommends transfer to a tertiary care center for EUS. * accepted to [facility] * supportive care including IV fluid rehydration * antiemetics * analgesics (2) Subacute pancreatic necrosis: Code(s): K85.91 - Acute pancreatitis with uninfected necrosis, unspecified Status: Acute Assessment and Plan: * See above (3) Toe pain, left: Code(s): M79.675 - Pain in left toe(s) Status: Acute Assessment and Plan: * Xrays indicate no abnormality * Ice pack (4) Dehydration: Code(s): E86.0 - Dehydration Status: Acute Assessment and Plan: * Continue IV fluid rehydration. * Probably from vomiting (5) Hypertension: Code(s): I10 - Essential (primary) hypertension Status: Chronic Assessment and Plan: * Current BP 113/68 * stable. * Continue lisinopril * trend blood pressures * adjust therapy as necessary (6) Hyperlipidemia: Code(s): E78.5 - Hyperlipidemia, unspecified Status: Chronic Assessment and Plan: * Continue statin * LFTs within normal limits. (7) Anxiety: Code(s): F41.9 - Anxiety disorder, unspecified Status: Chronic Assessment and Plan: * No acute issues * Continue fluoxetine. * Trend mood and behavior (8) Gastroesophageal reflux disease: Code(s): K21.9 - Gastro-esophageal reflux disease without esophagitis Status: Acute Assessment and Plan: * change Pepcid to Protonix b.i.d. (9) Vomiting: Code(s): R11.10 - Vomiting, unspecified Status: Acute Assessment and Plan: * reports of vomiting multiple times throughout the day * GI on the case * antiemetics ordered * IV hydration (10) Alcohol abuse: Code(s): F10.10 - Alcohol abuse, uncomplicated Status: Acute Assessment and Plan: * folic acid and thiamine ordered * [facility] protocol * Librium Time Spent With Patient Time with patient: 25 - 35 minutes Subjective Date/time seen: 04/10/21 08:40 Interval history: Date/Time: 04/07/21 18:30 Narrative: This is a pleasant 40-year-old male with hypertension, hyperlipidemia, anxiety, and chronic alcohol abuse who presented to the emergency department earlier today from home for evaluation of abdominal pain and vomiting. He is known to the hospitalist service with a recent admission between 03/15/2021 and 03/18/2021 in which he was admitted for acute pancreatitis felt to be related to heavy alcohol use. Right upper quadrant ultr asound was unremarkable and his triglyceride level was well within normal limits. His symptoms improved with supportive care and he felt much better on discharge albeit not 100% back to normal. Once home he started eating a bland diet though about a week after discharge he ate a piece of [employer] and not long thereafter he developed nausea and a pressure-like discomfort in the upper abdomen. Symptoms have continued since that time despite putting himself on an NPO diet with ice chips. He also continues to have intermittent bouts of nonbilious, nonbloody emesis. Pepcid and ibuprofen have helped perhaps a bit but not significantly. CT of the abdomen and pelvis done today showed se
--- NOTE | 2021-04-10 12:40 | WPDGIPROGNO ---
Progress Note: A&P Assessment and Plan (1) Subacute pancreatic necrosis: Code(s): K85.91 - Acute pancreatitis with uninfected necrosis, unspecified Status: Acute Assessment and Plan: pain and nausea better with medical management and actually he is tolerating full liquid diet ok to hold on TPN for now as long as he is tolerating oral route awaiting transfer to tertiary hospital (most likely he will need EUS-guided drainage and endoscopic necrosectomy), GI doctor at another facility will review imaging (2) Nausea and vomiting in adult: Code(s): R11.2 - Nausea with vomiting, unspecified Status: Acute Assessment and Plan: improved (3) Alcohol abuse: Code(s): F10.10 - Alcohol abuse, uncomplicated Status: Acute Assessment and Plan: he will try to be abstinent now (4) Epigastric pain: Code(s): R10.13 - Epigastric pain Status: Acute Assessment and Plan: much better (5) Anorexia: Code(s): R63.0 - Anorexia Status: Acute Subjective Date/time seen: 04/10/21 12:40 Interval history: tolerating full liquid diet, less pain today and no nausea Review of Systems Review of Systems: All systems reviewed & are unremarkable except as noted in HPI and below Exam Const: General: comfortable and no acute distress HENMT: General nose exam: Normal nares present Eyes: General: appearance normal, both eyes and all related structures Neck: Neck: no JVD Resp: Auscultation: clear to auscultation bilaterally Cardio: Rate: regular rate Rhythm: regular rhythm GI: Inspection: non-distended GI Palp: Yes Soft to palpation and No Guarding due to palpation present (GI) Auscultation: normal bowel sounds Other: no pain today Skin: General skin exam: normal color Neuro: General: gait normal Speech: normal speech Extrem: General: normal to inspection Psych: Mental Status: mental status grossly normal Objective Data Vital Signs Vital Signs: Vital Signs - 24 hr 04/09/21 14:00 04/09/21 21:03 04/10/21 05:53 Temperature 98.0 F 97.6 F 97.4 F L Pulse Rate 71 63 61 Respiratory Rate 18 16 14 Blood Pressure 132/74 109/63 124/66 Pulse Oximetry 100 100 96 Intake/Output Intake/Output: Intake & Output 11/28/04/08/21 04/09/21 04/10/21 23:59 23:59 23:59 23:59 Intake Total 1000 19996 1070 Balance 1000 19996 1070 Meds/Results Medications: Active Medications Generic Name Dose Route Start Last Admin Trade Name Dakotahq PRN Reason Stop Dose Admin Atorvastatin Calcium 20 mg 04/08/21 09:00 04/10/21 08:35 Atorvastatin 20 Mg Tablet PO 20 mg DAILY [place] Administration Chlordiazepoxide HCl 25 mg 04/08/21 15:33 Chlordiazepoxide (*Crx) 25 Mg Capsule PO Q8H PRN Anxiety Fluoxetine HCl 20 mg 04/08/21 09:00 04/10/21 08:34 Fluoxetine Hcl 20 Mg Capsule PO 20 mg DAILY [place] Administration Folic Acid 1 mg 04/08/21 09:00 04/10/21 08:34 Folic Acid 1 Mg Tablet PO 1 mg DAILY [place] Administration Dextrose 1,000 mls @ 50 mls/hr 04/08/21 18:43 Dextrose 10% IV CONT .Q20H PRN if PN is interrupted Dextrose 1,000 mls @ 50 mls/hr 04/09/21 16:29 Dextrose 10% IV CONT .Q20H PRN if PN is interrupted Lisinopril 20 mg 04/08/21 09:00 04/10/21 08:34 Lisinopril 20 Mg Tablet PO 20 mg DAILY [place] Administration Morphine Sulfate 4 mg 04/07/21 17:43 Morphine Sulfate (*Crx) 4 Mg/Ml Inj IV PUSH Q2H PRN Pain Rated 7-10 Ondansetron HCl 4 mg 04/07/21 17:43 04/08/21 11:30 Ondansetron Inj 4 Mg/2 Ml Vial IV PUSH 4 mg Q4H PRN Administration Nausea Pantoprazole Sodium 40 mg 04/08/21 09:00 04/10/21 08:35 Pantoprazole Sodium Iv 40 Mg Vial IV PUSH 40 mg Q12HR [place] Administration Thiamine HCl 100 mg 04/08/21 09:00 04/10/21 08:35 Thiamine Hcl 100 Mg Tablet PO 100 mg DAILY [place] Administration Radiology Results: ITS Impressions Abd
[2021-04-10 14:23] VITALS: BP 113/68; PULSE 67; RESP 16; TEMP 36.3; O2SAT 96
[2021-04-10 22:00] VITALS: BP 127/69; PULSE 65; RESP 14; TEMP 36; O2SAT 98
[2021-04-11 06:00] VITALS: BP 103/55; PULSE 62; RESP 14; TEMP 36.1; O2SAT 99
[2021-04-11 06:18] LABS: Basophils Percent Auto 0.3 % (0.2-1.2); Eosinophils Absolute Auto 0.1 K/mm3 (0-0.3); Eosinophils Percent Auto 1.5 % (0-4.4); Hematocrit 39.2 % (42.0-52.0); Hemoglobin 13.1 g/dL (14.0-18.0); Immature Granulocyte Absolute 0.03 K/mm3 (0.00-0.031); Immature Granulocyte Percent A 0.3 % (0-0.5); Lymphocytes Absolute Auto 1.36 K/mm3 (0.9-3.2); Lymphocytes Percent Auto 14.7 % (18.3-44.2); Mean Corpuscular HGB Conc 33.4 g/dl (32-36); Mean Corpuscular Hemoglobin 31.1 pg (26-34); Mean Corpuscular Volume 93.1 fl (80-100); Mean Platelet Volume 9.7 fl (7.4-10.4); Monocytes Absolute Auto 0.8 K/mm3 (0.1-0.6); Monocytes Percent Auto 8.8 % (2.6-8.5); Neutrophils Absolute Auto 6.9 K/mm3 (1.3-6.7); Neutrophils Percent Auto 74.4 % (45.5-73.1); Platelet Count Result 371 k/mm3 (150-375); Red Blood Count 4.21 M/mm3 (4.6-6.20); Red Cell Distribution Width 11.9 % (11.5-14.5); White Blood Count 9.2 K/mm3 (4.5-10.0)
[2021-04-11 06:58] LABS: Alanine Aminotransferase 25 U/L (4-50); Albumin Level 3.9 g/dL (3.5-5.1); Alkaline Phosphatase 104 U/L (38-126); Anion Gap 7 mmol/L (8-16); Aspartate Amino Transferase 25 U/L (17-59); Bilirubin,Total 0.4 mg/dL (0.2-1.3); Blood Urea Nitrogen 9 mg/dL (9-20); Calcium 9.6 mg/dL (8.4-10.2); Carbon Dioxide 27 mmol/L (22-30); Chloride 98 mmol/L (98-107); Estimated CRCL calculation 100 ml/min; Estimated Glomerular Filt Rate > 60; Glucose 111 mg/dL (65-110); Magnesium 2.2 mg/dL (1.6-2.3); Potassium 4.5 mmol/L (3.4-5.0); Sodium 132 mmol/L (137-145)
[2021-04-11] MEDS: ATORVASTATIN 20 MG TABLET PO (08:52)
[2021-04-11] MEDS: FLUoxetine HCL 20 MG CAPSULE PO (08:52)
[2021-04-11] MEDS: THIAMINE HCL 100 MG TABLET PO (08:53)
[2021-04-11] MEDS: lisinopriL 20 MG TABLET PO (08:53)
[2021-04-11] MEDS: PANTOPRAZOLE SODIUM IV 40 MG VIAL IV PUSH (08:53)
[2021-04-11] MEDS: FOLIC ACID 1 MG TABLET PO (08:53)
--- NOTE | 2021-04-11 09:20 | P.DS_ITS ---
DS: Admitting Diagnosis Discharge Date Date of service 04/11/2021 at 920 Admitting Diagnosis Acute pancreatitis DS: Discharge Diagnosis Discharge Diagnosis (1) Peripancreatic fluid collection: Code(s): K86.89 - Other specified diseases of pancreas Status: Acute Assessment and Plan: * Dr. Carreon Recommends transfer to a tertiary care center for EUS. * accepted to [facility] * supportive care including IV fluid rehydration * antiemetics * analgesics * Updated Dr Parish about patient (2) Subacute pancreatic necrosis: Code(s): K85.91 - Acute pancreatitis with uninfected necrosis, unspecified Status: Acute Assessment and Plan: * See above (3) Toe pain, left: Code(s): M79.675 - Pain in left toe(s) Status: Acute Assessment and Plan: * Xrays indicate no abnormality * Ice pack (4) Dehydration: Code(s): E86.0 - Dehydration Status: Acute Assessment and Plan: * Continue IV fluid rehydration. * Probably from vomiting (5) Hypertension: Code(s): I10 - Essential (primary) hypertension Status: Chronic Assessment and Plan: * Current BP 103/55 * stable. * Continue lisinopril * trend blood pressures * adjust therapy as necessary (6) Hyperlipidemia: Code(s): E78.5 - Hyperlipidemia, unspecified Status: Chronic Assessment and Plan: * Continue statin * LFTs within normal limits. (7) Anxiety: Code(s): F41.9 - Anxiety disorder, unspecified Status: Chronic Assessment and Plan: * No acute issues * Continue fluoxetine. * Trend mood and behavior (8) Gastroesophageal reflux disease: Code(s): K21.9 - Gastro-esophageal reflux disease without esophagitis Status: Acute Assessment and Plan: * change Pepcid to Protonix b.i.d. (9) Vomiting: Code(s): R11.10 - Vomiting, unspecified Status: Acute Assessment and Plan: * reports of vomiting multiple times throughout the day * GI on the case * antiemetics ordered * IV hydration (10) Alcohol abuse: Code(s): F10.10 - Alcohol abuse, uncomplicated Status: Acute Assessment and Plan: * folic acid and thiamine ordered * [place] protocol * Librium DS: Summary Hospital Course Hospital Course: Patient is a 40-year-old male with a past medical history of hyperlipidemia, hypertension, alcohol abuse who presented to the ED with abdominal pain accompanied by vomiting. CT of the abdomen and pelvis showed a sequelae of pancreatitis with large sterile acute necrotic collection involving the head of the pancreas extending into the peripancreatic space. GI was consulted and advised patient to be transferred to a tertiary care center because patient will need an endoscopic ultrasound. Lipase upon admission was 153 and has been trending down since admission. Liver enzymes are also normal today . Patient was started on IV fluids and was given Zofran and pain medicine for pain and nausea vomiting. Patient did have few episodes of vomitin g since admission and was rehydrated with fluids. Diet was advanced and he is able to tolerate a low-fat diet. Patient has also been having bowel movements and stated they been diarrhea however he feels like it is related some of the food he has been eating. Dr. Hall was consulted and is okay with discharge at this time
--- NOTE | 2021-04-11 09:20 | PM.DS ---
DS: Admitting Diagnosis Discharge Date Date of service 04/11/2021 at 920 Admitting Diagnosis Acute pancreatitis DS: Discharge Diagnosis Discharge Diagnosis (1) Peripancreatic fluid collection: Code(s): K86.89 - Other specified diseases of pancreas Status: Acute Assessment and Plan: Dr. Carreon Recommends transfer to a tertiary care center for EUS. accepted to [facility] supportive care including IV fluid rehydration antiemetics analgesics Updated Dr Parish about patient (2) Subacute pancreatic necrosis: Code(s): K85.91 - Acute pancreatitis with uninfected necrosis, unspecified Status: Acute Assessment and Plan: See above (3) Toe pain, left: Code(s): M79.675 - Pain in left toe(s) Status: Acute Assessment and Plan: Xrays indicate no abnormality Ice pack (4) Dehydration: Code(s): E86.0 - Dehydration Status: Acute Assessment and Plan: Continue IV fluid rehydration. Probably from vomiting (5) Hypertension: Code(s): I10 - Essential (primary) hypertension Status: Chronic Assessment and Plan: Current BP 103/55 stable. Continue lisinopril trend blood pressures adjust therapy as necessary (6) Hyperlipidemia: Code(s): E78.5 - Hyperlipidemia, unspecified Status: Chronic Assessment and Plan: Continue statin LFTs within normal limits. (7) Anxiety: Code(s): F41.9 - Anxiety disorder, unspecified Status: Chronic Assessment and Plan: No acute issues Continue fluoxetine. Trend mood and behavior (8) Gastroesophageal reflux disease: Code(s): K21.9 - Gastro-esophageal reflux disease without esophagitis Status: Acute Assessment and Plan: change Pepcid to Protonix b.i.d. (9) Vomiting: Code(s): R11.10 - Vomiting, unspecified Status: Acute Assessment and Plan: reports of vomiting multiple times throughout the day GI on the case antiemetics ordered IV hydration (10) Alcohol abuse: Code(s): F10.10 - Alcohol abuse, uncomplicated Status: Acute Assessment and Plan: folic acid and thiamine ordered [facility] protocol Librium DS: Summary Hospital Course Hospital Course: Patient is a 40-year-old male with a past medical history of hyperlipidemia, hypertension, alcohol abuse who presented to the ED with abdominal pain accompanied by vomiting. CT of the abdomen and pelvis showed a sequelae of pancreatitis with large sterile acute necrotic collection involving the head of the pancreas extending into the peripancreatic space. GI was consulted and advised patient to be transferred to a tertiary care center because patient will need an endoscopic ultrasound. Lipase upon admission was 153 and has been trending down since admission. Liver enzymes are also normal today . Patient was started on IV fluids and was given Zofran and pain medicine for pain and nausea vomiting. Patient did have few episodes of vomiting since admission and was rehydrated with fluids. Diet was advanced and he is able to tolerate a low-fat diet. Patient has also been having bowel movements and stated they been diarrhea however he feels like it is related some of the food he has been eating. Dr. Hall was consulted and is okay with discharge at this time and wants patient to follow-up with Dr. Parish at [facility]. Patient denies chest pain, shortness of breath, nausea, diarrhea, constipation, vomiting, abdominal pain, sweats, fevers, chills. Long education about alcohol cessation was given. Patient verbalizes understanding and is okay with the plan of care at this time. Patient also met with dietitian who gave him meal plans for low-fat diet. Status at Discharge Functional status at discharge: independent ambulation Overall status at discharge: pat
--- NOTE | 2021-04-11 12:23 | WPDGIPROGNO ---
Progress Note: A&P Assessment and Plan (1) Subacute pancreatic necrosis: Code(s): K85.91 - Acute pancreatitis with uninfected necrosis, unspecified Status: Acute Assessment and Plan: pain and nausea resolved with medical management and today tolerated soft diet I think that he can go home and then follow-up with GI doctor at [facility] (he can have either repeat CT scan in 3-4 weeks to reassess or if more symptomatic may need EUS-guided drainage and endoscopic necrosectomy based on findings) he most likely will go home today (2) Nausea and vomiting in adult: Code(s): R11.2 - Nausea with vomiting, unspecified Status: Acute Assessment and Plan: resolved (3) Alcohol abuse: Code(s): F10.10 - Alcohol abuse, uncomplicated Status: Acute Assessment and Plan: he will try to be abstinent now (4) Epigastric pain: Code(s): R10.13 - Epigastric pain Status: Acute Assessment and Plan: much better (5) Anorexia: Code(s): R63.0 - Anorexia Status: Acute Assessment and Plan: tolerating diet now Subjective Date/time seen: 04/11/21 12:23 Interval history: he is feeling much better and tolerated soft diet. He is feeling like going home. Review of Systems Review of Systems: All systems reviewed & are unremarkable except as noted in HPI and below Exam Const: General: comfortable and no acute distress HENMT: General nose exam: Normal nares present Eyes: General: appearance normal, both eyes and all related structures Neck: Neck: no JVD Resp: Auscultation: clear to auscultation bilaterally Cardio: Rate: regular rate Rhythm: regular rhythm GI: Inspection: non-distended GI Palp: Yes Soft to palpation and No Guarding due to palpation present (GI) Auscultation: normal bowel sounds Skin: General skin exam: normal color Neuro: Speech: normal speech Motor exam (neuro): Normal motor muscle tone present throughout Extrem: General: normal to inspection Psych: Mental Status: mental status grossly normal Objective Data Vital Signs Vital Signs: Vital Signs - 24 hr 04/10/21 14:23 04/10/21 22:00 04/11/21 06:00 Temperature 97.3 F L 96.8 F L 96.9 F L Pulse Rate 67 65 62 Respiratory Rate 16 14 14 Blood Pressure 113/68 127/69 103/55 L Pulse Oximetry 96 98 99 Intake/Output Intake/Output: Intake & Output 04/08/21 04/09/21 04/10/21 04/11/21 23:59 23:59 23:59 23:59 Intake Total 1999 2125 1710 460 Balance 1999 2125 1710 460 Meds/Results Medications: Active Medications Generic Name Dose Route Start Last Admin Trade Name Freq PRN Reason Stop Dose Admin Atorvastatin Calcium 20 mg 04/08/21 09:00 04/11/21 08:52 Atorvastatin 20 Mg Tablet PO 20 mg DAILY [place] Administration Chlordiazepoxide HCl 25 mg 04/08/21 15:33 Chlordiazepoxide (*Crx) 25 Mg Capsule PO Q8H PRN Anxiety Fluoxetine HCl 20 mg 04/08/21 09:00 04/11/21 08:52 Fluoxetine Hcl 20 Mg Capsule PO 20 mg DAILY [place] Administration Folic Acid 1 mg 04/08/21 09:00 04/11/21 08:53 Folic Acid 1 Mg Tablet PO 1 mg DAILY [place] Administration Dextrose 1,000 mls @ 50 mls/hr 04/08/21 18:43 Dextrose 10% IV CONT .Q20H PRN if PN is interrupted Dextrose 1,000 mls @ 50 mls/hr 04/09/21 16:29 Dextrose 10% IV CONT .Q20H PRN if PN is interrupted Lisinopril 20 mg 04/08/21 09:00 04/11/21 08:53 Lisinopril 20 Mg Tablet PO 20 mg DAILY [place] Administration Morphine Sulfate 4 mg 04/07/21 17:43 Morphine Sulfate (*Crx) 4 Mg/Ml Inj IV PUSH Q2H PRN Pain Rated 7-10 Ondansetron HCl 4 mg 04/07/21 17:43 04/08/21 11:30 Ondansetron Inj 4 Mg/2 Ml Vial IV PUSH 4 mg Q4H PRN Administration Nausea Pantoprazole Sodium 40 mg 04/08/21 09:00 04/11/21 08:53 Pantoprazole Sodium Iv 40 Mg Vial IV PUSH 40 mg Q12HR [place] Administration Thiamine HCl 100 mg 04/08/21 09:00
== END 2021-04-11 14:06 | disposition home or self-care (01) | DRG 440 ==
LOC: ANHED 18:55 → ANH2MED 18:59
PROVIDERS: Emergency Medicine; Internal Medicine Gastroenterology; Physician Assistant; Admitting Provider Family Medicine; Emergency Provider Emergency Medicine; PCP Internal Medicine; Visit Provider Nurse Practitioner
DX: K86.89 Other specified diseases of pancreas (principal); K85.21 Alcohol induced acute pancreatitis with uninfected necrosis; F10.10 Alcohol abuse, uncomplicated; E86.0 Dehydration; R63.0 Anorexia; K21.9 Gastro-esophageal reflux disease without esophagitis; I10 Essential (primary) hypertension; E78.5 Hyperlipidemia, unspecified; F41.9 Anxiety disorder, unspecified; M79.675 Pain in left toe(s); Z28.21 Immunization not carried out because of patient refusal; Z79.899 Other long term (current) drug therapy
CPT/HCPCS: 36415; 73660; 74177; 80048; 80053; 81001; 82948; 83690; 83735; 84100; 84466; 84478; 85025; 85027; 85730; 96361; 96365; 96367; 96374; 96375; 96376; 99285; A9270; C9113; G0378; J2405; J2550; J7030; J7120; Q9967